=== PATIENT | female | born 1995 | race Caucasian/White ===

== ENCOUNTER → 2019-07-16 11:14 | Outpatient (BNVA) | payer OTHER, MEDICAID, SELFPAY | PROVIDERS: Family Provider Nurse Practitioner Family; PCP Nurse Practitioner Family; Visit Provider Obstetrics & Gynecology | DX: Z30.430 Encounter for insertion of intrauterine contraceptive device (principal); Z30.9 Encounter for contraceptive management, unspecified; Z78.9 Other specified health status; R87.610 Atypical squamous cells of undetermined significance on cytologic smear of cervix (ASC-US) | CPT/HCPCS: 81025 ==

== ENCOUNTER → 2021-01-01 11:45 | Outpatient (BNVA) | payer MEDICAID, SELFPAY | PROVIDERS: Family Provider Nurse Practitioner Family; PCP Nurse Practitioner Family; Visit Provider Nurse Practitioner Family | DX: Z20.822 Contact with and (suspected) exposure to COVID-19 (principal) | CPT/HCPCS: 87635 ==

== ENCOUNTER → 2021-08-15 10:00 | Outpatient (BNVA) | payer MEDICAID, SELFPAY | PROVIDERS: Family Provider Nurse Practitioner Family; PCP Nurse Practitioner Family; Visit Provider Nurse Practitioner Women's Health | DX: N92.6 Irregular menstruation, unspecified (principal) | CPT/HCPCS: 81025; 84702 ==

== ENCOUNTER → 2021-09-14 09:57 | Outpatient (BNVA) | payer MEDICAID, SELFPAY | PROVIDERS: Family Provider Nurse Practitioner Family; PCP Nurse Practitioner Family; Visit Provider Obstetrics & Gynecology | DX: Z34.90 Encounter for supervision of normal pregnancy, unspecified, unspecified trimester (principal) | CPT/HCPCS: 76815; 80307; 84315; 85027; 86592; 86762; 86803; 86850; 86900; 87086; 87340; 87806 ==

== ENCOUNTER → 2021-10-19 13:20 | Outpatient (BNVA) | payer MEDICAID, SELFPAY | PROVIDERS: Family Provider Nurse Practitioner Family; PCP Nurse Practitioner Family; Visit Provider Obstetrics & Gynecology | DX: O09.92 Supervision of high risk pregnancy, unspecified, second trimester (principal); Z3A.00 Weeks of gestation of pregnancy not specified | CPT/HCPCS: 84315; 87491; 87591 ==

== ENCOUNTER 2021-11-19 07:23 | Emergency (ER) | payer MEDICAID, SELFPAY ==
--- NOTE | 2021-11-19 07:27 | XR_ITS ---
WS: [id number] PORTABLE CHEST HISTORY: dyspnea/cough COMPARISON: None available. Very mild interstitial edema. No focal consolidation or pneumonia. No pleural effusion or pneumothora x. Cardiac size: Normal. Mediastinum/Aorta: Normal mediastinum. No osseous abnormality seen. XR/XR chest 1V portable [id number] IMPRESSION: Mild interstitial edema. No pneumonia.
[2021-11-19 07:31] VITALS: BP 140/85; PULSE 119; RESP 24; TEMP 36.6; O2SAT 93; BMI 34.3
[2021-11-19 07:36] VITALS: BP 125/88; PULSE 100; RESP 18; O2SAT 93
[2021-11-19 07:59] LABS: Basophils % 0.3 %; Eosinophils # 0.2 10^3/uL (0.0-0.8); Eosinophils % 1.5 %; Hematocrit 38.9 % (37.0-47.0); Hemoglobin 13.3 g/dL (11.5-15.3); Lymphocytes # 3.1 10^3/uL (0.8-4.8); Lymphocytes % 19.7 %; Mean Corpuscular HGB Conc 34.2 g/dL (30.0-36.0); Mean Corpuscular Hemoglobin 31.1 pg (28.0-34.0); Mean Corpuscular Volume 90.9 fl (81-99); Monocytes # 0.5 10^3/uL (0.2-0.9); Monocytes % 3.3 %; Neutrophils # 11.62 10^3/uL (1.8-7.7); Neutrophils % 74.7 %; Nucleated Red Blood Cells % 0 %; Platelet Count 375 10^3/cmm (130-400); Red Blood Count 4.28 10^6/uL (4.1-5.3); Red Cell Distribution Width 13.8 % (12.1-15.1); White Blood Count 15.6 10^3/uL (4.0-10.0)
--- NOTE | 2021-11-19 07:59 | ED_ITS ---
HPI - SOB/Dyspnea General: Chief Complaint: Shortness of Breath/Dyspnea Stated Complaint: low o2 Time Seen by Provider: 11/19/21 07:25 Source: patient Mode of arrival: ambulatory Limitations: no limitations History of Present Illness: HPI Narrative: 26-year-old female presents emergency room complaining cough and shortness of breath. States her oxygen saturations at home dropped as low as 82%. On arrival here her oxygen saturation normal breath and she is mildly tachycardic. Symptoms started 6 days ago she was seen over the weekend in urgent care and started on amoxicillin given albuterol. Patient is currently 19 weeks and had an abnormal quad screen for trisomy 21. She is also Rh-. She denies any anosmia she has been vaccinated for COVID she not had any fever. No chest pain. MD elicited complaint: shortness of breath and cough Pertinent past history: other (Currently 19 weeks ) Onset (ago): day(s) (6) Timing: intermittent Severity: mild Exacerbating factors: exertion Relieving factors: rest Associated symptoms: Deny abdominal pain, chest congestion, chest pain, cough, diaphoresis, dizziness, extremity pain, fever(s), hemoptysis, lightheadedness, myalgias, nausea, orthopnea, palpitations, paresthesias, polydipsia, polyuria, rash, sense of impending doom, syncope or vomiting Treatment prior to arrival: none Review of Systems Const: Reports: fatigue and malaise; Denies: fever(s), chills or diaphoresis ENMT: Denies: throat pain, ear or mastoid pain, nasal discharge or nasal co ngestion Card: Denies: chest pain, palpitations, lightheadedness, syncope or orthopnea Resp: Reports: dyspnea and non-productive cough; Denies: productive cough, wheezing, hemoptysis or chest congestion GI: Denies: abdominal pain, nausea or vomiting : Denies: flank pain, difficulty voiding, dysuria, urinary frequency or urinary urgency Musc: Denies: extremity pain Skin/Breast: Denies: rash or pruritus Neuro: Denies: dizziness Endo: Denies: polyuria or polydipsia PFSH ED PFSH: Medical History Atypical squamous cells of undetermined significance (ASC-US) on cervical Pap smear No pertinent past medical history neghx: htn,dm,thyroid,dvt/pe PCP: Carrie Benitez Surgical History No pertinent past surgical history Family History Grandmother Breast cancer maternal--dx age unknown Hypercholesteremia paternal Hypertension Paternal Father Diabetes Hypercholesteremia Hypertension Mother Hypercholesteremia Grandfather Hypercholesteremia paternal Denies family history of Colon cancer Ovarian cancer Heart disease Uterine cancer Thyroid disease Stroke Physical Exam Const: GENERAL APPEARANCE: cooperative and comfortable ORIENTATION/CONSCIOUSNESS: Yes awake, Yes oriented to person, Yes oriented to place and Yes oriented to time HENMT: COMMON NORMALS: normocephalic, atraumatic and hearing grossly normal bilaterally HEAD & SCALP: normocephalic and atraumatic Neck/C-Spine: COMMON NORMALS: no JVD Resp: AUSCULTATION: crackles and diminished lung sounds Cardio: COMMON NORMALS: no JVD, regular rate, regular rhythm and No murmurs present (Cardio) RATE: regular rate RHYTHM: regular rhythm GI: COMMON NORMALS: Soft to palpation and No hepatosplenomegaly present AUSCULTATION: Yes normoactive bowel sounds PALPATION: Yes Soft to palpation, No Tenderness to palpation present (GI), No Guarding due to palpation present (GI) and Yes No hepatosplenomegaly present Extremity: COMMON NORMALS: normal to inspection, capillary refill normal, no clubbing, cyanosis or edema, no calf tenderness and no pedal edema Neuro: SENSORIUM/ORIENTATION: Yes oriented to person, Yes oriented to place and Yes oriented to time Skin: COMMON NORMALS: no rashes or lesions noted GENERAL SKIN EXAM: no rashes or lesions noted Course Vital Signs: Vital signs: Vital Signs Temperature 98 F 11/19/21 07:31 Pulse Rate 89 11/19/21 11:05 Respiratory Rate 20 H 11/19/21 11:05 Blood Pressure 145/85 11/19/21 11:05 Pulse Oximetry 91 11/19/21 11:05 MDM - SOB/Dyspnea Medical Decision Making Relatively mild symptoms improved with nebulizer. No pneumonia on chest x-ray patient is improved no longer using oxygen she did use some oxygen for a brief period of time time discharge she was on room air tolerating well. We will discharge patient home if she has any worsening or change symptoms return to the emergency room. Medical Records I reviewed the patient's medical records. Lab Data I reviewed the patient's lab results. : 11/19/21 07:50 11/19/21 07:50 Labs/Radiology: Radiology Impressions Chest X-Ray 11/19/21 07:27 IMPRESSION: Mild interstitial edema. No pneumonia. Laboratory Results WBC 15.6 10^3/uL (4.0-10.0) H 11/19/21 07:50 RBC 4.28 10^6/uL (4.1-5.3) 11/19/21 07:50 Hgb 13.3 g/dL (11.5-15.3) 11/19/21 07:50 Hct 38.9 % (37.0-47.0) 11/19/21 07:50 MCV 90.9 fl (81-99) 11/19/21 07:50 MCH 31.1 pg (28.0-34.0) 11/19/21 07:50 MCHC 34.2 g/dL (30.0-36.0) 11/19/21 07:50 RDW 13.8 % (12.1-15.1) 11/19/21 07:50 Plt Count 375 10^3/cmm (130-400) 11/19/21 07:50 MPV 9.0 fL (7.4-10.4) 11/19/21 07:50 Neut % (Auto) 74.7 % 11/19/21 07:50 Lymph % (Auto) 19.7 % 11/19/21 07:50 [place] % (Auto) 3.3 % 11/19/21 07:50 Eos % (Auto) 1.5 % 11/19/21 07:50 Baso % (Auto) 0.3 % 11/19/21 07:50 Neut # (Auto) 11.62 10^3/uL (1.8-7.7) H 11/19/21 07:50 Lymph # (Auto) 3.1 10^3/uL (0.8-4.8) 11/19/21 07:50 [place] # (Auto) 0.5 10^3/uL (0.2-0.9) 11/19/21 07:50 Eos # (Auto) 0.2 10^3/uL (0.0-0.8) 11/19/21 07:50 Baso # (Auto) 0.0 10^3/uL (0.0-0.1) 11/19/21 07:50 Nucleated RBC % (auto) 0 % 11/19/21 07:50 Nucleated RBCs # 0.0 /100WBC 11/19/21 07:50 Sodium 136 mmol/L (136-145) 11/19/21 07:50 Potassium 3.5 mmol/L (3.5-5.1) 11/19/21 07:50 Chloride 102 mmol/L (98-107) 11/19/21 07:50 Carbon Dioxide 19 mmol/L (22-29) L 11/19/21 07:50 Anion Gap 18.5 (5-19) 11/19/21 07:50 BUN 5 mg/dL (6-20) L 11/19/21 07:50 Creatinine 0.4 mg/dL (0.5-0.9) L 11/19/21 07:50 GFR Calculation 190.1 mL/min (90-130) H 11/19/21 07:50 Glucose 111 mg/dL (65-115) 11/19/21 07:50 Calculated Osmolality 280 mOsm/kg (285-295) L 11/19/21 07:50 Calcium 9.5 mg/dL (8.5-10.5) 11/19/21 07:50 Total Bilirubin 0.3 mg/dL (0.15-1.2) 11/19/21 07:50 AST 9 U/L (0-32) 11/19/21 07:50 ALT 7 U/L (0-33) 11/19/21 07:50 Alkaline Phosphatase 116 IU/L (35-105) H 11/19/21 07:50 NT-Pro-B Natriuret Pep 6 pg/mL (0-125) 11/19/21 08:42 Total Protein 7.8 g/dL (6.6-8.7) 11/19/21 07:50 Albumin 4.0 g/dL (3.5-5.2) 11/19/21 07:50 Globulin 3.8 g/dL (1.3-4.6) 11/19/21 07:50 SARS-CoV-2 RNA (RT-PCR) Not detected (NOT DETECTED) 11/19/21 10:23 Discharge Plan Discharge Patient Disposition: Home Clinical Impression: Dyspnea Condition: Stable Prescriptions: No Action amoxicillin-pot clavulanate 875-125 mg tablet 1 tab PO BID 7 Days Qty: 14 0RF albuterol sulfate [Ventolin HFA] 90 mcg/actuation HFA aerosol inhaler 2 puff inhalation Q6H PRN (Reason: shortness of breath or wheezing) Qty: 8.5 0RF prenat.vits,floresita,bnx-rffy-prwol Tablet 1 tab PO DAILY 0RF Zyrtec 10 mg Tablet 10 mg PO DAILY PRN (Reason: Allergy Symptoms) 0RF ferrous sulfate [iron] 325 mg (65 mg iron) Tablet 325 mg PO DAILY 0RF Discharge Orders: Discharge ED (Routine); Ordered 11/19/21 Ordered By: Sigifredo Dos Santos Referrals: Laquita Benitez APN [Primary Care Provider] - Discharge Diet: Usual diet Discharge Activity: Limit activity as instructed Patient Instructions: COVID-19 (Coronavirus Disease 2019) (ED), Opioid Safety Activity Restrictions/Additional Instructions: You were tested for COVID-19 today. Recommend you maintain self quarantine until the results have returned. If any worsening or change symptoms return to the emergency room. Coding Level of Care Code ED Customer Support Engineer for Jan Cavanaugh Exam Comprehensive
--- NOTE | 2021-11-19 08:29 | USCV_ITS ---
Elsy Costa Age: 26 Gender: F : 1995 Exam Date: 11/19/2021 08:46 Ordering Phys: Sigifredo Dos Santos DO Technologist: Bassam Martinez Exam Location: [facility] [place] Indication: short of breath chest pain BP: 124 / 74 HR: 95 Rhythm: Sinus Technical Quality: Adequate MEASUREMENTS (Male / Female) Normal Values 2D ECHO LV Diastolic Diameter PLAX 4.3 cm 4.2 - 5.9 / 3.9 - 5.3 cm LV Systolic Diameter PLAX 2.7 cm IVS Diastolic Thickness 0.8 cm 0.6 - 1.0 / 0.6 - 0.9 cm IVS Systolic Thickness 1.4 cm LVPW Diastolic Thickness 1.1 cm 0.6 - 1.0 / 0.6 - 0.9 cm LVPW Systolic Thickness 1.3 cm LVOT Diameter 2.0 cm LV Ejection Fraction 2D Teich 66.8 % LV Ejection Fraction MOD 2C 69.0 % LV Ejection Fraction 2C AL 69.9 % LA Diameter 3.6 cm LA Width 4.2 cm Aorta at Sinotubular Diameter 2.3 cm M-MODE RV Diastolic Diameter MM 1.3 cm Aortic Annulus Diameter 2.9 cm LA Ao Ratio MM 1.5 MV E Point Septal Separation 0.8 cm DOPPLER AV Peak Velocity 168.0 cm/s LVOT Peak Velocity 120.0 cm/s AV Area Cont Eq vti 2.1 cm squared AV Area Cont Eq pk 2.3 cm squared MV Area PHT 5.0 cm squared Mitral E to A Ratio 1.9 MV E' Velocity 63.0 cm/s Mitral E to MV E' Ratio 6.8 Mitral E to LV E' Lateral Ratio 7.1 Mitral E to LV E' Septal Ratio 6.5 TR Peak Velocity 110.0 cm/s TR Peak Gradient 4.8 mmHg PV Peak Velocity 141.0 cm/s FINDINGS Left Ventricle Normal left ventricular size. LV systolic function is normal with EF of 55-60%. No regional wall motion abnormalities.Diastolic function is normal Right Ventricle The right ventricle is normal in size and function. Right Atrium The right atrium is normal in size. Left Atrium The left atrium is normal in size. Mitral Valve Structurally normal mitral valve without significant stenosis or prolapse. There is no mitral regurgitation. Aortic Valve Structurally normal aortic valve without significant sclerosis or stenosis. There is no aortic regurgitation. Tricuspid Valve Structurally normal tricuspid valve without significant stenosis or regurgitation. Pulmonary artery systolic pressure is normal. Pulmonic Valve Not well visualized Pericardium Normal pericardium without effusion. Aorta Normal ascending aorta dimension. IVC CONCLUSIONS LV systolic function is normal with EF of 55-60% Diastolic function is normal No significant valvular heart disease No comparison studies are available Tariq Hoover MD (Electronically Signed) Final Date: 19 November 2021 10:09 S
[2021-11-19 08:30] LABS: Alanine Aminotransferase 7 U/L (0-33); Alkaline Phosphatase 116 IU/L (35-105); Anion Gap 18.5 (5-19); Aspartate Amino Transferase 9 U/L (0-32); Blood Urea Nitrogen 5 mg/dL (6-20); Calcium 9.5 mg/dL (8.5-10.5); Carbon Dioxide 19 mmol/L (22-29); Chloride 102 mmol/L (98-107); Globulin 3.8 g/dL (1.3-4.6); Glomerular Filtration Rate 190.1 mL/min (90-130); Glucose 111 mg/dL (65-115); Osmolality Calculated 280 mOsm/kg (285-295); Potassium 3.5 mmol/L (3.5-5.1); Sodium 136 mmol/L (136-145); Total Bilirubin 0.3 mg/dL (0.15-1.2); Total Protein 7.8 g/dL (6.6-8.7)
[2021-11-19 09:21] LABS: NT Pro B Type Natriuretic Pept 6 pg/mL (0-125)
[2021-11-19 10:28] VITALS: BP 122/68; PULSE 98; RESP 20; O2SAT 94
[2021-11-19 10:57] VITALS: O2SAT 92; O2SAT 95
--- NOTE | 2021-11-19 11:04 | PC.NURSE ---
PT O2 NOTED TO BE 88% ON ROOM AIR, PT PLACED ON 2L NC. O2 SATURATION IMPROVED TO 94%
[2021-11-19 11:05] VITALS: BP 145/85; PULSE 89; RESP 20; O2SAT 91
[2021-11-20 15:02] LABS: Quest SARS-CoV-2 RNA NOT DETECTED (NOT DETECTED)
== END 2021-11-19 12:20 | disposition home or self-care (01) ==
PROVIDERS: Emergency Provider Family Medicine; PCP Nurse Practitioner Family
DX: R06.00 Dyspnea, unspecified (principal); Z20.822 Contact with and (suspected) exposure to COVID-19
CPT/HCPCS: 71045; 80053; 83880; 85025; 87635; 93306; 94760; 99284

== ENCOUNTER → 2021-12-21 09:09 | Outpatient (BNVA) | payer MEDICAID, SELFPAY | PROVIDERS: PCP Nurse Practitioner Family; Visit Provider Obstetrics & Gynecology | DX: Z34.90 Encounter for supervision of normal pregnancy, unspecified, unspecified trimester (principal) | CPT/HCPCS: 82950; 84315 ==

== ENCOUNTER → 2021-12-28 08:19 | Outpatient (BNVA) | payer MEDICAID, SELFPAY | PROVIDERS: PCP Nurse Practitioner Family; Visit Provider Obstetrics & Gynecology | DX: Z34.90 Encounter for supervision of normal pregnancy, unspecified, unspecified trimester (principal) | CPT/HCPCS: 82951; 82952 ==

== ENCOUNTER → 2022-01-18 10:28 | Outpatient (BNVA) | payer MEDICAID, SELFPAY | PROVIDERS: PCP Nurse Practitioner Family; Visit Provider Obstetrics & Gynecology | DX: O26.899 Other specified pregnancy related conditions, unspecified trimester (principal); Z67.91 Unspecified blood type, Rh negative; Z3A.00 Weeks of gestation of pregnancy not specified | CPT/HCPCS: 84315; 85027; 86850 ==

== ENCOUNTER 2022-02-05 06:52 | Outpatient (CLI) | payer MEDICAID, SELFPAY ==
[2022-02-05 06:52] VITALS: BMI 33.7
[2022-02-05 06:56] VITALS: BP 133/80; PULSE 103
[2022-02-05 07:17] VITALS: BP 122/73; PULSE 102
[2022-02-05 07:37] VITALS: BP 119/72; PULSE 100
[2022-02-05 07:48] VITALS: BP 119/72; PULSE 100
== END 2022-02-05 07:48 | disposition home or self-care (01) ==
LOC: OPOB 06:52 → OBGYN 06:53
PROVIDERS: PCP Nurse Practitioner Family; Visit Provider Obstetrics & Gynecology
DX: O36.8190 Decreased fetal movements, unspecified trimester, not applicable or unspecified (principal); Z3A.00 Weeks of gestation of pregnancy not specified
CPT/HCPCS: 59025; 99211

== ENCOUNTER → 2022-02-22 14:21 | Outpatient (BNVA) | payer MEDICAID, SELFPAY | PROVIDERS: PCP Nurse Practitioner Family; Visit Provider Obstetrics & Gynecology | DX: O09.899 Supervision of other high risk pregnancies, unspecified trimester (principal); Z3A.00 Weeks of gestation of pregnancy not specified | CPT/HCPCS: 76819 ==

== ENCOUNTER → 2022-02-27 07:40 | Outpatient (BNVA) | payer MEDICAID, SELFPAY | PROVIDERS: PCP Nurse Practitioner Family; Visit Provider Obstetrics & Gynecology | DX: O28.0 Abnormal hematological finding on antenatal screening of mother (principal); O26.899 Other specified pregnancy related conditions, unspecified trimester; Z3A.00 Weeks of gestation of pregnancy not specified | CPT/HCPCS: 76819 ==

== ENCOUNTER 2022-03-01 01:59 | Observation (INO) | payer MEDICAID, SELFPAY ==
[2022-02-28 22:55] VITALS: BMI 32.4
[2022-02-28 23:08] VITALS: BP 112/62; PULSE 114
[2022-02-28 23:13] VITALS: TEMP 36.1
[2022-02-28 23:23] VITALS: BP 118/65; PULSE 102
[2022-02-28 23:39] VITALS: BP 113/69; PULSE 96
[2022-02-28 23:42] VITALS: RESP 18
[2022-03-01] VITALS (18 sets, daily range): BP systolic 110–135; BP diastolic 53–77; PULSE 96–116; TEMP 36.5
[2022-03-01] MEDS: lactated ringers 1,000 ML 999 ML IV ×2 (00:05→01:30)
[2022-03-01] MEDS: pantoprazole 40 mg SDV IVP (00:12)
[2022-03-01 00:36] LABS: Basophils # 0.1 10^3/uL (0.0-0.1); Basophils % 0.2 %; Eosinophils % 0.1 %; Hematocrit 32.4 % (37.0-47.0); Hemoglobin 10.9 g/dL (11.5-15.3); Lymphocytes # 2.9 10^3/uL (0.8-4.8); Lymphocytes % 10.3 %; Mean Corpuscular HGB Conc 33.6 g/dL (30.0-36.0); Mean Corpuscular Hemoglobin 30.8 pg (28.0-34.0); Mean Corpuscular Volume 91.5 fl (81-99); Mean Platelet Volume 9.9 fL (7.4-10.4); Monocytes % 3.3 %; Neutrophils # 24.12 10^3/uL (1.8-7.7); Neutrophils % 84.8 %; Nucleated Red Blood Cells % 0 %; Platelet Count 471 10^3/cmm (130-400); Red Blood Count 3.54 10^6/uL (4.1-5.3); Red Cell Distribution Width 13.5 % (12.1-15.1); White Blood Count 28.5 10^3/uL (4.0-10.0)
[2022-03-01 00:46] LABS: Alanine Aminotransferase < 5 U/L (0-33); Albumin Level 3.4 g/dL (3.5-5.2); Alkaline Phosphatase 172 U/L (35-105); Anion Gap 17.9 (5-19); Aspartate Amino Transferase 8 U/L (0-32); Blood Urea Nitrogen 7 mg/dL (6-20); Calcium 9.2 mg/dL (8.5-10.5); Carbon Dioxide 20 mmol/L (22-29); Chloride 102 mmol/L (98-107); Globulin 3.6 g/dL (1.3-4.6); Glomerular Filtration Rate 190.1 mL/min (90-130); Glucose 94 mg/dL (65-115); Osmolality Calculated 280 mOsm/kg (285-295); Potassium 3.9 mmol/L (3.5-5.1); Sodium 136 mmol/L (136-145); Total Bilirubin 0.3 mg/dL (0.15-1.2)
[2022-03-01 00:49] LABS: Bilirubin Urine 1+ (Negative); Blood Urine Neg (Negative); Glucose Urine UA Norm (Normal); Ketones Urine 2+ (Negative); Nitrate Urine Negative (Negative); Protein Urine 1+ (Negative); Urine Appearance Clear (CLEAR); Urine Color Dark Yellow (Yellow); Urobilinogen Urine 1 mg/dL (Negative); pH Urine 6 (5-7)
[2022-03-01 00:50] LABS: Leukocyte Esterase Urine Trace (Negative)
[2022-03-01 00:51] LABS: Amorphous Sediment Urine 1+ /hpf; Bacteria Urine 1+ /hpf; Mucus Urine 2+ /hpf; RBC Urine 0-4 /hpf (0-2); Squamous Epithelial Cell Urine 25-40 /hpf (0-5)
[2022-03-01 00:52] LABS: Add Urine Culture? No
[2022-03-01] MEDS: ketorolac 30 mg/mL INJ IVP (01:28)
[2022-03-01] MEDS: lactated ringers 1,000 ML 125 ML IV (02:32)
[2022-03-01] MEDS: ceFAZolin 2,000 MG in sodium chloride 0.9% (plus) 50 ML 100 MG IV (02:33)
[2022-03-01 07:21] LABS: Basophils % 0.2 %; Eosinophils % 0.2 %; Hematocrit 28.1 % (37.0-47.0); Hemoglobin 9.5 g/dL (11.5-15.3); Lymphocytes % 17.4 %; Mean Corpuscular HGB Conc 33.8 g/dL (30.0-36.0); Mean Corpuscular Hemoglobin 30.8 pg (28.0-34.0); Mean Corpuscular Volume 91.2 fl (81-99); Mean Platelet Volume 9.7 fL (7.4-10.4); Monocytes # 0.6 10^3/uL (0.2-0.9); Monocytes % 3.4 %; Neutrophils # 13.47 10^3/uL (1.8-7.7); Neutrophils % 77.9 %; Nucleated Red Blood Cells % 0 %; Platelet Count 383 10^3/cmm (130-400); Red Blood Count 3.08 10^6/uL (4.1-5.3); Red Cell Distribution Width 13.7 % (12.1-15.1); White Blood Count 17.3 10^3/uL (4.0-10.0)
[2022-03-01 07:44] LABS: Alanine Aminotransferase < 5 U/L (0-33); Albumin Level 2.7 g/dL (3.5-5.2); Alkaline Phosphatase 143 U/L (35-105); Anion Gap 16.5 (5-19); Aspartate Amino Transferase 8 U/L (0-32); Blood Urea Nitrogen 7 mg/dL (6-20); Calcium 8.4 mg/dL (8.5-10.5); Carbon Dioxide 19 mmol/L (22-29); Chloride 102 mmol/L (98-107); Globulin 3.1 g/dL (1.3-4.6); Glomerular Filtration Rate 264.9 mL/min (90-130); Glucose 83 mg/dL (65-115); Osmolality Calculated 275 mOsm/kg (285-295); Potassium 3.5 mmol/L (3.5-5.1); Sodium 134 mmol/L (136-145); Total Bilirubin 0.4 mg/dL (0.15-1.2); Total Protein 5.8 g/dL (6.6-8.7)
[2022-03-01] MEDS: alum-mag-hydroxide-sime 30 mL UDC PO (08:02)
--- NOTE | 2022-03-01 10:07 | PM.OBGYPN ---
DIRECTOR DISTRIBUTION Subjective Subjective: Interval history: This is a combined admit note/discharge summary pt presented with c/o nausea, vomiting and diarrhea since eating several hours ago. 34 weeks gestation. She reports she is unable to hold down food and fluids. She was given iv hydration and ancef 2 gms iv. Initially wbc elevated and repeat the following am shows that it is normalizing. Pt showed symptom resolution and was sushant reg diet the following morning and was discharged to home with instructions to f/u in clinic as scheduled. Medications: Reviewed: Yes Labor: Station: -3 Amniotic Membrane Status: Intact Monitor Mode: External Contraction Pattern: Absent Vitals/I&O/Wt Last Vital Signs Temp 97.7 F 03/01/22 09:13 Pulse 113 H 03/01/22 09:13 Resp 18 02/28/22 23:42 BP 131/67 03/01/22 09:13 02/28/22 03/01/22 03/01/22 22:59 06:59 14:59 Intake Total 1000 / 1000 1050 / 1050 Balance 1000 / 1000 1050 / 1050 Weight last 48 hrs Weight 195 lb Physical Exam Narrative: alert and well nourished Const: COMMON NORMALS: no acute distress, average body habitus and patient oriented x3 HENMT: COMMON NORMALS: normocephalic, atraumatic, hearing grossly normal bilaterally, external ears normal and Normal external nose present HEAD & SCALP: normocephalic and atraumatic NOSE: Normal external nose present EXTERNAL EAR: Yes external ears normal Eye: COMMON NORMALS: conjunctivae normal and no scleral icterus CONJUNCTIVA: Yes conjunctivae normal Neck/C-Spine: COMMON NORMALS: no lymphadenopathy, supple, no JVD and Thyroid normal THYROID: Thyroid normal Chest: COMMONS NORMALS: normal inspection of the chest Resp: COMMON NORMALS: normal respiratory effort, No retractions and No use of accessory muscles Cardio: COMMON NORMALS: no JVD, regular rate and Peripheral pulses 2+ throughout RATE: regular rate PERIPHERAL PULSES: Peripheral pulses 2+ throughout GI: COMMON NORMALS: Soft to palpation PALPATION: Yes Soft to palpation OTHER: diffusely tender : COMMON NORMALS: Yes no CVA tenderness BLADDER/KIDNEY EXAM: Yes no CVA tenderness Back/Pelvis: COMMON NORMALS: no CVA tenderness Extremity: COMMON NORMALS: normal to inspection, capillary refill normal and no clubbing, cyanosis or edema Neuro: COMMON NORMALS: patient oriented x3, moves all extremities, no focal motor deficits, no sensory deficits noted and gait normal Psych: COMMON NORMALS: mental status grossly normal, Normal thought process present, cooperative, normal affect and speech normal SPEECH: Yes normal speech THOUGHT PROCESS: Normal thought process present Skin: COMMON NORMALS: no rashes or lesions noted and turgor normal GENERAL SKIN EXAM: no rashes or lesions noted and turgor normal Data : 03/01/22 07:11 03/01/22 07:11 A&P Assessment and plan (1) Gastroenteritis: iv hydration and antiemetics ancef 2 gms (2) Rh negative status during : (3) Abnormal multiple marker screen in fetus: (4) Atypical squamous cells of undetermined significance (ASC-US) on cervical Pap smear: (5) Supervision of normal in third trimester: Plan iv hydration ancef 2 gms repeat cbc discharged to home with improved cbc and symptom resolution Attestations Medical Necessity Statement*: observation for iv hydration and repeat cbc for gastroenteritis Time Spent in Patient Care: 30 min Coding Level of Care Code Acute Administrative Services Coordinator for [facility] Fwd Diagnoses Gastroenteritis K52.9 Rh negative status during O26.899; Z67.91 Abnormal multiple marker screen in fetus O28.0 Atypical squamous cells of undetermined significance (ASC-US) on cervical Pap smear R87.610 Supervision of normal in third trimester Z34.93
== END 2022-03-01 10:25 | disposition home or self-care (01) ==
LOC: OPOB 02:00 → OBGYN 02:00
PROVIDERS: Admitting Provider Obstetrics & Gynecology; PCP Nurse Practitioner Family; Visit Provider Obstetrics & Gynecology
DX: O26.893 Other specified pregnancy related conditions, third trimester (principal); Z3A.36 36 weeks gestation of pregnancy; K52.9 Noninfective gastroenteritis and colitis, unspecified; Z67.91 Unspecified blood type, Rh negative; O28.0 Abnormal hematological finding on antenatal screening of mother; R87.610 Atypical squamous cells of undetermined significance on cytologic smear of cervix (ASC-US)
CPT/HCPCS: 36415; 59025; 80053; 81001; 85025; 96374; 99211; C9113; G0378; J1885; J7120

== ENCOUNTER → 2022-03-12 13:11 | Outpatient (BNVA) | payer MEDICAID, SELFPAY | PROVIDERS: Family Provider Nurse Practitioner Family; PCP Nurse Practitioner Family; Visit Provider Obstetrics & Gynecology | DX: R89.8 Other abnormal findings in specimens from other organs, systems and tissues (principal) | CPT/HCPCS: 76819 ==

== ENCOUNTER → 2022-03-15 14:11 | Outpatient (BNVA) | payer MEDICAID, SELFPAY | PROVIDERS: Family Provider Nurse Practitioner Family; PCP Nurse Practitioner Family; Visit Provider Obstetrics & Gynecology | DX: O26.899 Other specified pregnancy related conditions, unspecified trimester (principal); Z67.91 Unspecified blood type, Rh negative; O28.0 Abnormal hematological finding on antenatal screening of mother; K52.9 Noninfective gastroenteritis and colitis, unspecified; O99.019 Anemia complicating pregnancy, unspecified trimester; Z3A.00 Weeks of gestation of pregnancy not specified | CPT/HCPCS: 81000; 87081 ==

== ENCOUNTER → 2022-03-22 12:51 | Outpatient (BNVA) | payer MEDICAID, SELFPAY | PROVIDERS: Family Provider Nurse Practitioner Family; PCP Nurse Practitioner Family; Visit Provider Obstetrics & Gynecology | DX: O99.019 Anemia complicating pregnancy, unspecified trimester (principal); D64.9 Anemia, unspecified; Z3A.00 Weeks of gestation of pregnancy not specified | CPT/HCPCS: 76819; 84315 ==

== ENCOUNTER → 2022-03-29 07:42 | Outpatient (BNVA) | payer MEDICAID, SELFPAY | PROVIDERS: Family Provider Nurse Practitioner Family; PCP Nurse Practitioner Family; Visit Provider Obstetrics & Gynecology | DX: Z34.90 Encounter for supervision of normal pregnancy, unspecified, unspecified trimester (principal) | CPT/HCPCS: 76819; 84315 ==

== ENCOUNTER → 2022-04-02 13:12 | Outpatient (BNVA) | payer MEDICAID, SELFPAY | PROVIDERS: Family Provider Nurse Practitioner Family; PCP Nurse Practitioner Family; Visit Provider Obstetrics & Gynecology | DX: O99.019 Anemia complicating pregnancy, unspecified trimester (principal); D64.9 Anemia, unspecified | CPT/HCPCS: 76819; 84315 ==

== ENCOUNTER 2022-04-07 19:14 | Inpatient (IN) | payer MEDICAID, SELFPAY ==
[2022-04-07] VITALS (64 sets, daily range): BP systolic 118–206; BP diastolic 62–95; PULSE 83–116; RESP 17–18; TEMP 36.1–36.7; O2SAT 97–99; BMI 31.2
[2022-04-07 17:03] LABS: Nitrazine Paper, PH Negative
[2022-04-07] MEDS: ampicillin 2,000 MG in sodium chloride 0.9% (plus) 50 ML 100 MG IV (18:02)
[2022-04-07] MEDS: lactated ringers 1,000 ML 999 ML IV ×2 (18:03→19:09)
[2022-04-07] MEDS: fentaNYL 50 mcg/mL INJ 2mL IVP (18:12)
[2022-04-07 18:17] LABS: Basophils # 0.1 10^3/uL (0.0-0.1); Basophils % 0.3 %; Eosinophils # 0.1 10^3/uL (0.0-0.8); Eosinophils % 0.6 %; Hematocrit 33.5 % (37.0-47.0); Hemoglobin 11.3 g/dL (11.5-15.3); Lymphocytes # 5.1 10^3/uL (0.8-4.8); Lymphocytes % 26.3 %; Mean Corpuscular HGB Conc 33.7 g/dL (30.0-36.0); Mean Corpuscular Volume 86.1 fl (81-99); Mean Platelet Volume 9.5 fL (7.4-10.4); Monocytes # 0.8 10^3/uL (0.2-0.9); Monocytes % 3.9 %; Nucleated Red Blood Cells % 0 %; Platelet Count 488 10^3/cmm (130-400); Red Blood Count 3.89 10^6/uL (4.1-5.3); Red Cell Distribution Width 14.2 % (12.1-15.1); White Blood Count 19.6 10^3/uL (4.0-10.0)
--- NOTE | 2022-04-07 18:41 | P.ANESASSM_ITS ---
Pre-Anesthetic Assessment Height/Weight: Height 1.65 m Weight 85.275 kg Temp Pulse Resp BP Pulse Ox O2 Del Method 97.0 F L 100 17 131/78 98 04/07/22 17:46 04/07/22 18:38 04/07/22 18:12 04/07/22 18:38 04/07/22 18:37 04/07/22 17:45 Familial anesthetic complications: none Was Beta Domi taken within 24 hours: N/A Was Clonidine taken within 24 hours: N/A Social No alcohol and No tobacco Exam alert, oriented x 3, clear to auscultation bilaterally and regular rate & rhythm Airway Submandibular: within normal limits Cervical ROM: within normal limits Mallampati: Class II Dentition: full CV/HEM Anemia Anesthetic Plan ASA status: 2 Anesthesia: Regional (specify below) (labor epidural) Medications/Allergies Home Medications Medication Instructions Recorded Confirmed Last Taken Type prenat.vits,floresita,yyv-ifqf-ezyzf 1 tab PO DAILY 08/15/21 04/07/22 04/06/22 12:45 History ferrous sulfate 325 mg (65 mg 325 mg PO BID #60 tabs 02/01/22 04/07/22 04/06/22 12:45 Rx iron) tablet (iron) docusate sodium 100 mg capsule 100 mg PO BID #60 caps 03/07/22 04/07/22 04/06/22 12:45 Rx (Colace) Allergies Allergy/AdvReac Type Severity Reaction Status Date / Time acetaminophen [From Tylenol] Allergy Mild rash Verified 04/02/22 15:14 Current Medications Generic Name Dose Route Start Last Admin Trade Name Danielq PRN Reason Stop Dose Admin Fentanyl 25 - 100 mcg 04/07/22 17:46 04/07/22 18:12 Fentanyl 50 Mcg/Ml Inj 2ml IVP 25 mcg Q1H PRN Administration SEVERE PAIN Ropivacaine 200 mg in 100 mls @ 13 mls/hr 04/07/22 18:00 04/07/22 18:28 Naropin Premix EPIDURAL 13 mls/hr .Q7H42M CLEM Administration Lactated Ringer's 1,000 mls @ 999 mls/hr 04/07/22 17:57 04/07/22 18:03 Lactated Ringers IV 999 mls/hr .Q1H1M PRN Administration See label comments [facility] Anesthesia Medical History Atypical squamous cells of undetermined significance (ASC-US) on cervical Pap smear No pertinent past medical history neghx: htn,dm,thyroid,dvt/pe PCP: Carrie Benitez Surgical History No pertinent past surgical history Family History Grandmother Breast cancer maternal--dx age unknown Hypercholesteremia paternal Hypertension Paternal Father Diabetes Hypercholesteremia Hypertension Mother Hypercholesteremia Grandfather Hypercholesteremia paternal Denies family history of Colon cancer Ovarian cancer Heart disease Uterine cancer Thyroid disease Stroke Social History Smoking and tobacco status: former smoker Female Reproductive History : 3 Data Anesthesia 04/07/22 17:54 Cardiac Studies: Echocardiogram 11/19/21 Anesthesia Procedures Epidural Time Out Performed: Yes Consents Signed: Procedure Consent Consent: requested by attending/covering physician, from patient, risks and benefits reviewed and patient agrees to proceed Lumbar Level: L3-L4 Epidural position: sitting Epidural procedure: sterile prep of area, 1% lidocaine to numb the area, 18 g needle, neg for paresthesia, test dose given, placed PCEA, no systemic response, sterile dressing applied and 0.2% Ropiavacaine @ mls/hr (13) Additional Comments: ENRIQUE at 6cm, cath at 11cm, no bolus
[2022-04-07 18:43] LABS: Slide Review Slide Review Perform
--- NOTE | 2022-04-07 18:53 | PM.OBGYHP ---
Providers/Chief Complaint Primary Care Provider: Laquita Benitez APN Chief Complaint: CONTRACTIONS HPI SUPERVISOR FINISH END History of Present Illness Elsy Costa is a 26 year old female at 39.2 wk IUP admitted in early labor. Initial exam Cervix 4cm/70%/-2 vtx now 6cm/90%/-2. care uncomplicated to date with Ciro Daniels. Present Details : 3 Para: 1 Date of Last Menstrual Period: 07/06/21 Calculated Date of Delivery: 04/12/22 Gestational Age Based on Last Menstrual Period: 39 care: good care Ultrasounds: normal mid trimester US Obstetrical complications: other (Abnormal Quad screen with Normal MFM and Level 2 US.) Labs Rubella: Immune RPR: Negative GBS: Positive Review of Systems Const: Denies: fever(s) Card: Denies: swelling of feet/ankles GI: Denies: abdominal pain, nausea, vomiting or constipation : Denies: dysuria, vaginal bleeding, vaginal discharge or other (leaking fluid ) Musc: Denies: back pain Neuro: Denies: headache(s) Medications/Allergies Home Medications Medication Instructions Recorded Confirmed Last Taken Type prenat.vits,floresita,tas-hfhl-pnkzm 1 tab PO DAILY 08/15/21 04/07/22 04/06/22 12:45 History ferrous sulfate 325 mg (65 mg 325 mg PO BID #60 tabs 02/01/22 04/07/22 04/06/22 12:45 Rx iron) tablet (iron) docusate sodium 100 mg capsule 100 mg PO BID #60 caps 03/07/22 04/07/22 04/06/22 12:45 Rx (Colace) Allergies Allergy/AdvReac Type Severity Reaction Status Date / Time acetaminophen [From Tylenol] Allergy Mild rash Verified 04/02/22 15:14 PFSH SUPERVISOR FINISH END PFSH: Medical History Atypical squamous cells of undetermined significance (ASC-US) on cervical Pap smear No pertinent past medical history neghx: htn,dm,thyroid,dvt/pe PCP: Carrie Benitez Surgical History No pertinent past surgical history Family History Grandmother Breast cancer maternal--dx age unknown Hypercholesteremia paternal Hypertension Paternal Father Diabetes Hypercholesteremia Hypertension Mother Hypercholesteremia Grandfather Hypercholesteremia paternal Denies family history of Colon cancer Ovarian cancer Heart disease Uterine cancer Thyroid disease Stroke Social History Smoking and tobacco status: former smoker Other Female Reproductive History: Hx Age of Menarche: 8 Date of Last Menstrual Period: 07/06/21 History History History 3 Term 1 0 Miscarriages/Ectopic 1 Living Children 1 Care FLAVIO Calculator Estimated Delivery Date Method Current WG Current Estimate 04/12/22 LMP (Certain) 39w 2d Specific Issues/Plans RH Negative; A NEGATIVE POSITIVE HR FOR TRISOMY 21 on panorama; followed by MFM; normal biometry. Wkly NST/BPP at 32 weeks until delivery Anemia; started on twice daily iron at 28 weeks Vitals/I&O/Wt Last Vital Signs Temp 97.0 F L 04/07/22 17:46 Pulse 103 H 04/07/22 18:50 Resp 17 04/07/22 18:12 BP 132/80 04/07/22 18:50 Pulse Ox 97 04/07/22 18:42 O2 Del Method 04/07/22 17:45 04/07/22 04/07/22 04/07/22 06:59 14:59 22:59 Intake Total 50 / 50 Balance 50 / 50 Weight last 48 hrs Weight 85.275 kg Physical Exam Narrative: 26yo C. female awake and alert in no distress HENMT: COMMON NORMALS: normocephalic, moist oral mucous membranes and oropharynx normal HEAD & SCALP: normal to inspection EXTERNAL EAR: Yes external ears normal MOUTH: Normal oral and palatal mucosa present Resp: COMMON NORMALS: normal respiratory effort and clear to auscultation bilaterally Cardio: COMMON NORMALS: no JVD, regular rate and regular rhythm : COMMON NORMALS: Yes no CVA tenderness, Yes normal appearance of the vagina and Yes normal appearance of the cervix MANUAL OB EXAM: dilated 6 cm and effaced (90%) OTHER: AROM- clear fluid noted. Extremity: COMMON NORMALS: normal to inspection and no pedal edema Neuro: CRANIAL NERVES: Yes CN normal except as noted Data 11/27/22 17:54 A&P Assessment and plan (1) 39 weeks gestation of : (2) Anemia during : (3) Supervision of normal in third trimester: (4) Rh negative status during : (5) Abnormal multiple marker screen in fetus: Attestations Medical Necessity Statement*: Admitted for Management of Labor. Coding Level of Care Code Acute General Claims Agent for [facility] Fwd Diagnoses 39 weeks gestation of Z3A.39 Anemia during O99.019 Supervision of normal in third trimester Z34.93 Rh negative status during O26.899; Z67.91 Abnormal multiple marker screen in fetus O28.0
[2022-04-07] MEDS: dextrose 5%-lactated ringers 1,000 ML 125 ML IV (20:13)
[2022-04-07] MEDS: alum-mag-hydroxide-sime 30 mL UDC PO (20:51)
[2022-04-07] MEDS: oxytocin 30 UNIT/500 ML BAG IV (21:40)
[2022-04-07] MEDS: ampicillin 1,000 MG in sodium chloride 0.9% (plus) 50 ML 100 MG IV (22:02)
--- NOTE | 2022-04-07 23:08 | PM.DELIVERY ---
Delivery Note: Date of delivery: April 07, 2022 History History History 3 Term 1 0 Miscarriages/Ectopic 1 Living Children 1 Coding Level of Care Code Acute Pensions Retirement Plan Specialist for [facility]
--- NOTE | 2022-04-07 23:11 | P.PN_ITS ---
REGIONAL SALES REPRESENTATIVE Subjective Subjective: Interval history: Pt comfortable with Epidural. Now complete. Will DC epidural and labor down for adequate pushing. Labor: Station: -2 Amniotic Membrane Status: Intact Monitor Mode: External Contraction Pattern: Regular Status: Category I Vitals/I&O/Wt Last Vital Signs Temp 97.2 F L 04/07/22 22:45 Pulse 98 04/07/22 22:59 Resp 17 04/07/22 18:12 BP 143/88 04/07/22 22:59 Pulse Ox 97 04/07/22 18:42 O2 Del Method 04/07/22 17:45 04/07/22 04/07/22 04/08/22 14:59 22:59 06:59 Intake Total 2051.800 / 2051.800 Balance 2051.800 / 2051.800 Weight last 48 hrs Weight 85.275 kg Physical Exam Urinary Catheter Management: Levy Latex: Cath Placed During This Visit: yes Reason for Continuing Indwelling Catheter: Acute Urinary Retention or Obstruction Urinary Catheter Date of Insertion: 04/07/22 Urinary Catheter Time of Insertion: 19:00 Data 04/07/22 17:54 A&P Assessment and plan (1) 39 weeks gestation of : (2) Anemia during : (3) Supervision of normal in third trimester: (4) Rh negative status during : (5) Abnormal multiple marker screen in fetus: Plan P. Labor down, start pushing soon. Attestations Medical Necessity Statement*: management of labor Coding Level of Care Code Acute Document Preparer Microfilming for [facility] Fwd Diagnoses 39 weeks gestation of Z3A.39 Anemia during O99.019 Supervision of normal in third trimester Z34.93 Rh negative status during O26.899; Z67.91 Abnormal multiple marker screen in fetus O28.0
[2022-04-08] VITALS (16 sets, daily range): BP systolic 122–148; BP diastolic 70–93; PULSE 67–95; RESP 15–18; TEMP 35.9–37.1; O2SAT 96–100
--- NOTE | 2022-04-08 00:21 | PM.DELIVERY ---
Delivery Note: Date of delivery: April 08, 2022 Pre-delivery diagnoses: 39.2 wk IUP GBS positive Hx of Abnormal Quad screen Post-delivery diagnoses: S/P male Procedure: Op report anesthesia: Epidural Delivering Physician: Kwaku DANIELLE Estimated blood loss (mL): 300 Delivery: presented in OA presentation, followed by delivery of the Anterior then posterior shoulder with remainder of body to follow. Spontaneous cry noted. The cord was noted to be coiled and short. After delayed clamping the cord was clamped and cut and baby placed on Mothers chest. Cord blood collected and handed off. The uterus messaged and placenta presented Amin with trailing membranes. Pitocin IV solution given in bolus, the uterus firmed well with minimal bleeding. Vaginal vault explored with small laceration requiring 1 SIS of 2.0 vicryl to approximate. Mother and Infant stable. 8/8 wt- pending. Nursing staff attending to baby boy at warmer now requiring O2. Will take to Nursery for Lock Corner Machine Operator assistance. Post-Delivery Status: stable History History History 3 Term 1 0 Miscarriages/Ectopic 1 Living Children 1 A&P Assessment and plan (1) (spontaneous vaginal delivery): (2) Anemia during : (3) Rh negative status during : (4) Abnormal multiple marker screen in fetus: Plan A. 39.2 wk IUP delivered by - Viable male GBS positive Abnormal marker for Downs Anemia during Rh neg sttus P. Routine care and orders Coding Level of Care Code Acute Residential Program Coordinator for g Fwd Diagnoses (spontaneous vaginal delivery) O80 Anemia during O99.019 Rh negative status during O26.899; Z67.91 Abnormal multiple marker screen in fetus O28.0
[2022-04-08] MEDS: alum-mag-hydroxide-sime 30 mL UDC PO (00:46)
[2022-04-08] MEDS: oxytocin 30 UNIT/500 ML BAG 150 UNIT IV (00:48)
--- NOTE | 2022-04-08 01:35 | PC.NURSE ---
Patient wanted to get up to the bathroom at this time she was able to move her legs up and hold them in bed. She reported having good feeling in her legs. She got up on the side of the bed and sat for a couple minutes and was feeling fine. She then stood up and reported that her legs felt a little funny. The nurse was on one side of her holding her arm and her had her other arm. We helped walk her to the bathroom because she stated she felt fine just wanted some assistance. She was helped to the bathroom and sat on the toilet. She was given washcloths and clean up with and pads and underwear to put on. She was able to do this with limited assistance from the nurse. She attempted to pee for several minutes and was unable to go at this time. She was then helped into the wheelchair to go feed baby in the nursery and she said she no longer feels like she needs to pee. Her fundus is at umbilicus left of midline at this time but firm her bleeding is still scant. I told her I would help her back to the bathroom when she gets done feeding baby. She verbalized understanding and had no further questions at this time.
[2022-04-08] MEDS: ibuprofen 600 mg Tablet PO (03:02)
[2022-04-08] MEDS: oxyCODONE 5 mg IR Tab/Cap 10 MG PO (03:28)
[2022-04-08] MEDS: ibuprofen 800 mg tablet PO ×3 (08:04→20:47)
[2022-04-08] MEDS: docusate sodium 100 mg Capsule PO ×2 (08:04→20:47)
[2022-04-08] MEDS: prenatal vitamin Capsule 1 CAP PO (08:04)
[2022-04-08 12:30] LABS: Hematocrit 32.4 % (37.0-47.0); Hemoglobin 10.7 g/dL (11.5-15.3); Mean Corpuscular Hemoglobin 29.2 pg (28.0-34.0); Mean Corpuscular Volume 88.5 fl (81-99); Mean Platelet Volume 9.8 fL (7.4-10.4); Platelet Count 459 10^3/cmm (130-400); Red Blood Count 3.66 10^6/uL (4.1-5.3); Red Cell Distribution Width 14.3 % (12.1-15.1); White Blood Count 20.9 10^3/uL (4.0-10.0)
--- NOTE | 2022-04-08 20:18 | PM.OBGYPN ---
FAMILY WELFARE SOCIAL WORK PROFESSOR Subjective Subjective: Interval history: Pt resting in bed FOB present, no complaints. Tolerating ambulation, and diet without problems. Denies ARCHIBALD or dizziness. Baby doing well, feeding well, no longer requiring O2. Labor: Station: -2 Amniotic Membrane Status: Intact Monitor Mode: External Contraction Pattern: Regular Status: Category I Post /CS: Patient comments OB post-: no complaints, pain well controlled and tolerating diet Vitals/I&O/Wt Last Vital Signs Temp 98.3 F 04/08/22 16:50 Pulse 87 04/08/22 16:50 Resp 16 04/08/22 16:50 BP 136/81 04/08/22 16:50 Pulse Ox 97 04/08/22 16:50 O2 Del Method 04/08/22 16:50 04/08/22 04/08/22 04/08/22 06:59 14:59 22:59 Intake Total 2096.800 / 4199.600 Output Total 800 / 800 Balance 1296.800 / 3399.600 Weight last 48 hrs Weight 85.275 kg Physical Exam GI: COMMON NORMALS: Normal to inspection, nondistended, normoactive bowel sounds present and Soft to palpation PALPATION: Yes Soft to palpation OTHER: Fundus firm, lochia light. Extremity: NARRATIVE EXTREMITY EXAM: no edema, neg homans Urinary Catheter Management: Leyv Latex: Cath Placed During This Visit: yes, but has since been removed by the nurse Reason for Continuing Indwelling Catheter: Required Immobilization for Trauma or Surgery or Anesthesia Urinary Catheter Date of Insertion: 04/07/22 Urinary Catheter Time of Insertion: 19:00 Date Urinary Catheter Removed: 04/07/22 Time Urinary Catheter Discontinued: 23:30 Data 04/08/22 12:00 A&P Assessment and plan (1) (spontaneous vaginal delivery): (2) Anemia during : (3) Rh negative status during : (4) Abnormal multiple marker screen in fetus: Plan P. Probable Discharge tomorrow. Attestations Medical Necessity Statement*: S/P - Coding Level of Care Code Acute Mental Health Worker for Chg Fwd Exam Problem Focused Diagnoses (spontaneous vaginal delivery) O80 Anemia during O99.019 Rh negative status during O26.899; Z67.91 Abnormal multiple marker screen in fetus O28.0
[2022-04-09 04:25] VITALS: BP 112/86; PULSE 84; RESP 18; TEMP 36.7; O2SAT 98
--- NOTE | 2022-04-09 08:24 | P.DS_ITS ---
Discharge Providers SALES OUTFITTER Date of Admission: 04/07/22 19:14 Date of Discharge: 04/09/22 Attending Provider at Admission: Yvette Phipps DO Attending Provider at Discharge: Yvette Phipps DO Primary SALES OUTFITTER: Dr. Tanner Primary Care Provider: Laquita Benitez APN Diagnoses at Discharge Discharge Diagnosis (1) (spontaneous vaginal delivery): Status: Acute (2) Anemia during : Status: Acute (3) Rh negative status during : Status: Acute (4) Abnormal multiple marker screen in fetus: Status: Acute Reason for Visit Reason for Visit: CONTRACTIONS Hospital Course Hospital Course Pt doing well s/p , no complaints. Tolerating regular diet, ambulating without assistance. Pt is Breast feeding. Discussed discharge orders and expectations. Pt understands. Baby doing well with feeding, possible features of Downs, they understand, genetic testing to be done. Information Peripartum Data: Delivery Method: Vaginal Physical Exam Back/Pelvis: OTHER: Abd- soft, fundus firm. Lochia light. Extremity: NARRATIVE EXTREMITY EXAM: neg edema neg Homans. Urinary Catheter Management: Levy Latex: Cath Placed During This Visit: yes, but has since been removed by the nurse Reason for Continuing Indwelling Catheter: Required Immobilization for Trauma or Surgery or Anesthesia Urinary Catheter Date of Insertion: 04/07/22 Urinary Catheter Time of Insertion: 19:00 Date Urinary Catheter Removed: 04/07/22 Time Urinary Catheter Discontinued: 23:30 History History History 3 Term 1 0 Miscarriages/Ectopic 1 Living Children 1 Discharge Data Studies Completed and Pending Laboratory Results WBC 20.9 10^3/uL (4.0-10.0) H 04/08/22 12:00 RBC 3.66 10^6/uL (4.1-5.3) L 04/08/22 12:00 Hgb 10.7 g/dL (11.5-15.3) L 04/08/22 12:00 Hct 32.4 % (37.0-47.0) L 04/08/22 12:00 MCV 88.5 fl (81-99) 04/08/22 12:00 MCH 29.2 pg (28.0-34.0) 04/08/22 12:00 MCHC 33.0 g/dL (30.0-36.0) 04/08/22 12:00 RDW 14.3 % (12.1-15.1) 04/08/22 12:00 Plt Count 459 10^3/cmm (130-400) H 04/08/22 12:00 MPV 9.8 fL (7.4-10.4) 04/08/22 12:00 Neut % (Auto) 68.0 % 04/07/22 17:54 Lymph % (Auto) 26.3 % 04/07/22 17:54 [place] % (Auto) 3.9 % 04/07/22 17:54 Eos % (Auto) 0.6 % 04/07/22 17:54 Baso % (Auto) 0.3 % 04/07/22 17:54 Neut # (Auto) 13.30 10^3/uL (1.8-7.7) H 04/07/22 17:54 Lymph # (Auto) 5.1 10^3/uL (0.8-4.8) H 04/07/22 17:54 [place] # (Auto) 0.8 10^3/uL (0.2-0.9) 04/07/22 17:54 Eos # (Auto) 0.1 10^3/uL (0.0-0.8) 04/07/22 17:54 Baso # (Auto) 0.1 10^3/uL (0.0-0.1) 04/07/22 17:54 Nucleated RBC % (auto) 0 % 04/07/22 17:54 Nucleated RBCs # 0.0 /100WBC 04/07/22 17:54 Blood Type A Negative 04/07/22 17:54 Cord Blood Type (Auto) Cancelled 04/07/22 23:48 Rho(D) Type Cancelled 04/07/22 23:48 Antibody Screen Negative 04/07/22 17:54 Mother's Antibody Screen Cancelled 04/07/22 23:48 Direct Antiglob Test Cancelled 04/07/22 23:48 Mother's Blood Type Cancelled 04/07/22 23:48 RhIG Candidate? Cancelled 04/07/22 23:48 Vitals Last Vital Signs Temp 98.1 F 04/09/22 04:25 Pulse 84 04/09/22 04:25 Resp 18 04/09/22 04:25 BP 112/86 04/09/22 04:25 Pulse Ox 98 04/09/22 04:25 O2 Del Method 04/09/22 04:25 Discharge Plan Discharge Patient Disposition: Home Condition: Stable Prescriptions: No Action ferrous sulfate [iron] 325 mg (65 mg iron) tablet 325 mg PO BID Qty: 60 3RF prenat.vits,floresita,[id number]-[id number] Tablet 1 tab PO DAILY docusate sodium [Colace] 100 mg capsule 100 mg PO BID Qty: 60 1RF Discharge Diet: Regular Discharge Activity: Increase activity as tolerated and Return to work/school after cleared by PCP/Specialist Patient Instructions: Opioid Safety Activity Restrictions/Additional Instructions: Pelvic rest x 6 wks Assessment: S/P viable male Anemia- asymptomatic Plan of Treatment: 1. continue vits and iron 2. Ibuprofen for pain with food 3. DC to home today Discharge Attestations SALES OUTFITTER Time Spent in Discharge Care*: less than 30 min Coding Level of Care Code Acute Lining Stitcher for g Fwd Diagnoses (spontaneous vaginal delivery) O80 Anemia during O99.019 Rh negative status during O26.899; Z67.91 Abnormal multiple marker screen in fetus O28.0
--- NOTE | 2022-04-09 09:55 | ANE.PACU2 ---
Inpatient post-anesthesia follow up: Airway intact: Yes Vital signs: Temperature 98.1 F Pulse Rate 84 Respiratory Rate 18 Blood Pressure 112/86 Pulse Oximetry 98 Oxygen Delivery Me thod Room Air Oxygen Flow Rate Fraction of Inspir ed Oxygen Hydration adequate: Yes Nausea and vomiting: No Pain level: 1 Mental status: Baseline
[2022-04-09] MEDS: prenatal vitamin Capsule 1 CAP PO (09:59)
[2022-04-09] MEDS: docusate sodium 100 mg Capsule PO (09:59)
[2022-04-09] MEDS: ibuprofen 800 mg tablet PO ×2 (09:59→16:36)
[2022-04-09 10:04] VITALS: BP 149/83; PULSE 102; RESP 18; TEMP 36.7; O2SAT 98
[2022-04-09 16:39] VITALS: BP 152/89; PULSE 102; RESP 18; O2SAT 98
[2022-04-09] MEDS: mineral oil ENEMA 133 mL PR (18:15)
[2022-04-09 19:30] VITALS: BP 151/89; PULSE 85; RESP 16; TEMP 37; O2SAT 98
== END 2022-04-09 19:30 | disposition home or self-care (01) | DRG 806 ==
LOC: OPOB 04-09 07:39 → OBGYN 04-09 07:39
PROVIDERS: Absent Provider Obstetrics & Gynecology; Admitting Provider Obstetrics & Gynecology; Family Provider Nurse Practitioner Family; PCP Nurse Practitioner Family; Visit Provider Obstetrics & Gynecology
DX: O99.02 Anemia complicating childbirth (principal); O71.4 Obstetric high vaginal laceration alone; Z37.0 Single live birth; D64.9 Anemia, unspecified; O26.893 Other specified pregnancy related conditions, third trimester; Z67.11 Type A blood, Rh negative; O28.5 Abnormal chromosomal and genetic finding on antenatal screening of mother; Z3A.39 39 weeks gestation of pregnancy; Z87.891 Personal history of nicotine dependence
CPT/HCPCS: 12345; 36415; 51702; 59025; 59409; 83986; 85025; 85027; 86850; 86900; 96374; 99211; J0290; J2590; J2795; J3010; J7120; J7121

== ENCOUNTER → 2023-08-26 08:34 | Outpatient (BNVA) | payer OTHER, SELFPAY | PROVIDERS: Family Provider Nurse Practitioner Family; Visit Provider Nurse Practitioner Women's Health | DX: N92.6 Irregular menstruation, unspecified (principal); Z32.01 Encounter for pregnancy test, result positive | CPT/HCPCS: 81025 ==

== ENCOUNTER → 2023-09-11 15:31 | Outpatient (BNVA) | payer OTHER, SELFPAY | PROVIDERS: Family Provider Nurse Practitioner Family; Visit Provider Nurse Practitioner Women's Health | DX: Z36.87 Encounter for antenatal screening for uncertain dates (principal) | CPT/HCPCS: 76801 ==

== ENCOUNTER → 2023-10-03 07:58 | Outpatient (BNVA) | payer OTHER, SELFPAY | PROVIDERS: Family Provider Nurse Practitioner Family; Visit Provider Obstetrics & Gynecology | DX: Z34.80 Encounter for supervision of other normal pregnancy, unspecified trimester (principal) | CPT/HCPCS: 80307; 82950; 84315; 85025; 86592; 86762; 86803; 86850; 86900; 87086; 87340; 87491; 87591; 87624; 87806 ==

== ENCOUNTER → 2023-11-28 14:13 | Outpatient (BNVA) | payer OTHER, SELFPAY | PROVIDERS: Family Provider Nurse Practitioner Family; Visit Provider Obstetrics & Gynecology | DX: Z34.80 Encounter for supervision of other normal pregnancy, unspecified trimester (principal) | CPT/HCPCS: 76805; 84315 ==

== ENCOUNTER → 2023-12-26 03:10 | Outpatient (BNVA) | payer OTHER, SELFPAY | PROVIDERS: Family Provider Nurse Practitioner Family; Visit Provider Obstetrics & Gynecology | DX: Z34.80 Encounter for supervision of other normal pregnancy, unspecified trimester (principal) | CPT/HCPCS: 81000; 82950 ==

== ENCOUNTER 2023-12-30 12:15 | Outpatient (CLI) | payer OTHER, SELFPAY ==
[2023-12-30 12:29] VITALS: BP 160/80; PULSE 108
[2023-12-30 12:44] VITALS: BP 160/80; PULSE 105
[2023-12-30 12:59] VITALS: BP 152/76; PULSE 98
[2023-12-30 13:17] VITALS: BP 147/80; PULSE 103
[2023-12-30 13:22] VITALS: BP 128/60; PULSE 97; BMI 38.0
== END 2023-12-30 13:37 | disposition home or self-care (01) ==
LOC: OPOB 12:18 → OBGYN 12:20
PROVIDERS: Family Provider Nurse Practitioner Family; Visit Provider Obstetrics & Gynecology
DX: O26.899 Other specified pregnancy related conditions, unspecified trimester (principal); Z3A.00 Weeks of gestation of pregnancy not specified
CPT/HCPCS: 99211

== ENCOUNTER → 2024-01-07 07:57 | Outpatient (BNVA) | payer OTHER, SELFPAY | PROVIDERS: Family Provider Nurse Practitioner Family; Visit Provider Obstetrics & Gynecology | DX: Z36.2 Encounter for other antenatal screening follow-up (principal); Z3A.26 26 weeks gestation of pregnancy | CPT/HCPCS: 76816 ==

== ENCOUNTER 2024-01-13 08:06 | Outpatient (CLI) | payer OTHER, SELFPAY ==
[2024-01-13 08:19] VITALS: BMI 38.0
[2024-01-13 08:23] VITALS: BP 142/87; PULSE 102; RESP 18; TEMP 36.3
[2024-01-13 08:38] VITALS: BP 145/84; PULSE 96; RESP 16
[2024-01-13 08:53] VITALS: BP 144/80; PULSE 97; RESP 16
== END 2024-01-13 08:58 | disposition home or self-care (01) ==
LOC: OPOB 08:09 → OBGYN 08:09
PROVIDERS: Family Provider Nurse Practitioner Family; Visit Provider Obstetrics & Gynecology
DX: O36.8190 Decreased fetal movements, unspecified trimester, not applicable or unspecified (principal); Z3A.00 Weeks of gestation of pregnancy not specified
CPT/HCPCS: 99211

== ENCOUNTER → 2024-01-23 07:52 | Outpatient (BNVA) | payer OTHER, SELFPAY | PROVIDERS: Family Provider Nurse Practitioner Family; Visit Provider Obstetrics & Gynecology | DX: Z34.80 Encounter for supervision of other normal pregnancy, unspecified trimester (principal) | CPT/HCPCS: 84315; 85025; 86850 ==

== ENCOUNTER 2024-02-03 09:04 | Outpatient (CLI) | payer OTHER, SELFPAY ==
[2024-02-03 09:16] VITALS: BP 138/76; PULSE 105
[2024-02-03 09:24] VITALS: BMI 38.4
[2024-02-03 09:31] VITALS: BP 150/75; PULSE 95
[2024-02-03 09:46] VITALS: BP 145/66; PULSE 96
[2024-02-03 10:00] VITALS: BP 145/66; PULSE 96
== END 2024-02-03 10:00 | disposition home or self-care (01) ==
LOC: OPOB 09:12 → OBGYN 09:13
PROVIDERS: Family Provider Nurse Practitioner Family; Visit Provider Obstetrics & Gynecology
DX: O26.899 Other specified pregnancy related conditions, unspecified trimester (principal); Z3A.00 Weeks of gestation of pregnancy not specified; R10.9 Unspecified abdominal pain
CPT/HCPCS: 59025; 99211

== ENCOUNTER → 2024-03-19 09:41 | Outpatient (BNVA) | payer OTHER, SELFPAY | PROVIDERS: Family Provider Nurse Practitioner Family; Visit Provider Obstetrics & Gynecology | DX: Z34.80 Encounter for supervision of other normal pregnancy, unspecified trimester (principal); Z36.4 Encounter for antenatal screening for fetal growth retardation; Z3A.36 36 weeks gestation of pregnancy | CPT/HCPCS: 76816; 84315; 87081 ==

== ENCOUNTER 2024-04-10 20:27 | Outpatient (CLI) | payer OTHER, SELFPAY ==
[2024-04-10] VITALS (11 sets, daily range): BP systolic 113–150; BP diastolic 65–86; PULSE 96–112; TEMP 36; BMI 39.1
== END 2024-04-10 23:10 | disposition home or self-care (01) ==
LOC: OPOB 20:27 → OBGYN 20:28
PROVIDERS: Family Provider Nurse Practitioner Family; Visit Provider Obstetrics & Gynecology
DX: O26.899 Other specified pregnancy related conditions, unspecified trimester (principal); Z3A.00 Weeks of gestation of pregnancy not specified; R10.9 Unspecified abdominal pain
CPT/HCPCS: 59025; 99211

== ENCOUNTER 2024-04-14 13:31 | Inpatient (IN) | payer OTHER, SELFPAY ==
[2024-04-14] VITALS (40 sets, daily range): BP systolic 117–149; BP diastolic 64–90; PULSE 92–111; RESP 12–17; TEMP 35.9–36.5; O2SAT 95–99; BMI 38.9
[2024-04-14 13:19] LABS: Basophils # 0.1 10^3/uL (0.0-0.1); Basophils % 0.2 %; Eosinophils # 0.1 10^3/uL (0.0-0.8); Eosinophils % 0.3 %; Hematocrit 33.8 % (36-47); Lymphocytes # 3.5 10^3/uL (0.8-4.8); Lymphocytes % 17.3 %; Mean Corpuscular Hemoglobin 28.3 pg (27-33); Mean Corpuscular Volume 88.7 fl (85-98); Mean Platelet Volume 9.6 fL (7.4-10.4); Monocytes % 4.8 %; Neutrophils # 15.44 10^3/uL (1.8-7.7); Neutrophils % 76.6 %; Nucleated Red Blood Cells % 0 %; Platelet Count 434 10^3/cmm (157-399); Red Blood Count 3.81 10^6/uL (3.85-5.65); White Blood Count 20.17 10^3/uL (3.29-11.43)
[2024-04-14] MEDS: lactated ringers 1,000 ML 999 ML IV (13:40)
--- NOTE | 2024-04-14 13:50 | P.HP_ITS ---
Providers/Chief Complaint 2 Admitting Physician: Francisco Hirsch MD Primary OPERATIONS SUPPORT REPRESENTATIVE: Freddie Tanner MD Primary Care Provider: [employer]OYEE [employer] Chief Complaint: CTx HPI OPERATIONS SUPPORT REPRESENTATIVE History of Present Illness Elsy Deleon is a 28 year old female A1 EDC April 12, 2024 At 40 w 2 d No complications Presented to L&D c/o painful uterine contractions No bleeding, fluid leakage + active movements Present Details : 4 Para: 2 Labs Rubella: Immune RPR: Negative GBS: Negative Medications/Allergies Home Medications Medication Instructions Recorded Confirmed Last Taken Type ferrous sulfate 325 mg (65 mg 325 mg PO DAILY 08/26/23 04/12/24 1 Day Ago History iron) tablet ~04/09/24 docosahexaenoic acid 200 mg mg PO DAILY 02/03/24 04/12/24 1 Day Ago History capsule ( DHA) ~04/09/24 docusate sodium 50 mg capsule 50 mg PO ONCE PRN Constipation 02/20/24 04/12/24 1 Day Ago History ~04/09/24 Allergies Allergy/AdvReac Type Severity Reaction Status Date / Time acetaminophen [From Tylenol] Allergy Mild rash Verified 04/12/24 11:16 PFSH OPERATIONS SUPPORT REPRESENTATIVE 2 PFSH: Medical History Rh negative status during Abnormal multiple marker screen in fetus No pertinent past medical history neghx: htn,dm,thyroid,dvt/pe PCP: Carrie Benitez Atypical squamous cells of undetermined significance (ASC-US) on cervical Pap smear Surgical History No pertinent past surgical history Family History Grandmother Breast cancer maternal--dx age unknown Hypercholesteremia paternal Hypertension Paternal Father Diabetes t2dm Hypercholesteremia Hypertension Mother Hypercholesteremia Grandfather Hypercholesteremia paternal Denies family history of Colon cancer Ovarian cancer Heart disease Uterine cancer Thyroid disease Stroke Social History Smoking and tobacco/nicotine status: former use of tobacco/nicotine Other Female Reproductive History: Hx Age of Menarche: 8 History History History 2 4 Term 2 0 Miscarriages/Ectopic 1 Living Children 2 Care FLAVIO Calculator 2 Estimated Delivery Date Method Current WG Current Estimate 04/12/24 Ultrasound #1 40w 3d Other Estimates 03/31/24 LMP (Certain) 42w 1d Specific Issues/Plans * OBESITY * PREVIOUS CHILD WITH TRISOMY 21 * RH NEGATIVE BLOOD TYPE --01/23/2024 Rhogam given KE Vitals/I&O/Wt Last Vital Signs Temp 98.1 F 04/15/24 03:13 Pulse 87 04/15/24 03:13 Resp 14 04/15/24 03:13 BP 157/94 04/15/24 03:13 Pulse Ox 96 04/15/24 03:13 O2 Del Method Room Air 04/15/24 03:13 04/14/24 04/14/24 04/15/24 14:59 22:59 06:59 Intake Total 937 / 937 1120 / 7 Output Total 700 / 700 400 / 1100 Balance 237 / 237 720 / 957 Weight last 48 hrs Weight 227 lb Physical Exam 2 Narrative: Weight 230 lbs VS normal General awake, alert Lungs: clear Cor: RRR Abd: nontender Cervix: 4 cm / 75 / -2 Ext: no edema External monitor: regular UCs heart tracing good variability, + accelerations Urinary Catheter Management: Levy: Cath Placed During This Visit: yes, but has since been removed by the nurse Reason for Continuing Indwelling Catheter: Decision to DC Catheter Urinary Catheter Date of Insertion: 04/14/24 Urinary Catheter Time of Insertion: 14:56 Date Urinary Catheter Removed: 04/15/24 Time Urinary Catheter Discontinued: 21:11 Data 04/14/24 12:45 04/14/24 13:36 Results Labs OB ([facility]): 2 Obstetrics US 03/19/24 Blood Type A Negative 04/14/24 Antibody Screen Negative 04/14/24 Hct 33.8 % (36-47) L 04/14/24 Hgb 10.80 g/dL (11.27-16.99) L 04/14/24 Rho(D) Type Rh negative 04/14/24 Plt Count 434 10^3/cmm (157-399) H 04/14/24 Hep Bs Antigen Equivocal (Nonreactive) A 10/03/23 Hep Bs Antibody 3.7 (11.5-1000) L 07/17/23 Hepatitis C Antibody Non-reactive (Nonreactive) 10/03/23 Rubella IgG Antibody 52.0 IU/mL (0.0-10.0) H 10/03/23 RPR Nonreactive (Nonreactive) 10/03/23 HIV 1&2 Ab & HIV 1 Ag Non-reactive (Non-Reactiv) 10/03/23 C.trachomatis RNA (TMA) Not detected (NOT DETECTED) N.gonorrhoeae RNA (TMA) Not detected (NOT DETECTED) T. vaginalis Amp RNA Not detected (NOT DETECTED) 10/03/23 Chlamydia/GC Comment See note 10/03/23 Gest Glucose Tolerance 137 mg/dL (70-139) 12/26/23 Uric Acid 3.5 mg/dL (2.4-5.7) 04/14/24 VZV IgG Antibody 2804.00 index 07/17/23 HCG, Qual Positive (Negative) H 08/26/23 Urine Opiates Screen Negative ng/mL (Negative) 10/03/23 Ur Barbiturates Screen Negative ng/mL (Negative) 10/03/23 Ur Phencyclidine Scrn Negative ng/mL (Negative) 10/03/23 Ur Amphetamines Screen Negative ng/mL (Negative) 10/03/23 U Benzodiazepines Scrn Negative ng/mL (Negative) 10/03/23 Urine Cocaine Screen Negative ng/mL (Negative) 10/03/23 U Marijuana (THC) Screen Negative ng/mL (Negative) 10/03/23 Micro Urine Specimen 02/03/24 Pap Smear Interpret See note 10/03/23 A&P Assessment and plan (1) Supervision of other normal : 40 w 2 d Active labor Fetus reassuring Admit to OB Expectant management h/o x two Rh negative GBS negative (2) Rh negative status during : Qualifiers: Trimester: first trimester Qualified Code(s): O26.891 - Other specified related conditions, first trimester; Z67.91 - Unspecified blood type, Rh negative Attestations 2 Medical Necessity Statement*: patient at 40 w 2 d, with active labor Coding Level of Care Code Acute Code for Chg Fwd Diagnoses Supervision of other normal Z34.80 Rh negative status during in first trimester O26.891; Z67.91 Trimester: first trimester Time Spent (min) 60
[2024-04-14] MEDS: fentaNYL 50 mcg/mL INJ 2mL IVP (13:57)
--- NOTE | 2024-04-14 14:01 | P.ANESASSM_ITS ---
Pre-Anesthetic Assessment Height/Weight: Height 1.63 m Weight 102.965 kg Pulse Resp BP Pulse Ox O2 Del Method 94 17 134/77 95 Room Air 04/14/24 13:16 04/14/24 13:57 04/14/24 13:16 04/14/24 12:33 04/14/24 12:53 Preop Diagnosis: labor pain epidural Was Beta Domi taken within 24 hours: N/A Was Clonidine taken within 24 hours: N/A Exam alert, oriented x 3, clear to auscultation bilaterally and regular rate & rhythm Airway Submandibular: within normal limits Cervical ROM: within normal limits Mallampati: Class II Dentition: full Pulmonary None reported CV/HEM Anemia None reported Hepatic None reported GI Gastroesophageal Reflux Disease Metabolic None reported Musc/skel None reported Neuropsych None reported Anesthetic Plan ASA status: 2 Anesthesia: Regional (specify below) Risk of > 500 ml blood loss (7ml/kg in children): No Medications/Allergies Home Medications Medication Instructions Recorded Confirmed Last Taken Type ferrous sulfate 325 mg (65 mg 325 mg PO DAILY 08/26/23 04/12/24 1 Day Ago History iron) tablet ~04/09/24 docosahexaenoic acid 200 mg mg PO DAILY 02/03/24 04/12/24 1 Day Ago History capsule ( DHA) ~04/09/24 docusate sodium 50 mg capsule 50 mg PO ONCE PRN Constipation 02/20/24 04/12/24 1 Day Ago History ~04/09/24 Allergies Allergy/AdvReac Type Severity Reaction Status Date / Time acetaminophen [From Tylenol] Allergy Mild rash Verified 04/12/24 11:16 Current Medications Generic Name Dose Route Start Last Admin Trade Name Freq PRN Reason Stop Dose Admin Fentanyl 25 - 100 mcg 04/14/24 13:36 04/14/24 13:57 Fentanyl 50 Mcg/Ml Inj 2ml IVP 25 mcg Q1H PRN Administration SEVERE PAIN Lactated Ringer's 1,000 mls @ 999 mls/hr 04/14/24 12:56 04/14/24 13:40 Lactated Ringers IV 999 mls/hr .Q1H1M PRN Administration See label comments PFSH Anesthesia Medical History Rh negative status during Abnormal multiple marker screen in fetus No pertinent past medical history neghx: htn,dm,thyroid,dvt/pe PCP: Carrie Benitez Atypical squamous cells of undetermined significance (ASC-US) on cervical Pap smear Surgical History No pertinent past surgical history Family History Grandmother Breast cancer maternal--dx age unknown Hypercholesteremia paternal Hypertension Paternal Father Diabetes t2dm Hypercholesteremia Hypertension Mother Hypercholesteremia Grandfather Hypercholesteremia paternal Denies family history of Colon cancer Ovarian cancer Heart disease Uterine cancer Thyroid disease Stroke Social History Smoking and tobacco/nicotine status: former use of tobacco/nicotine Female Reproductive History : 4 Data Anesthesia 04/14/24 12:45 04/14/24 13:36 Short CBC 04/14/24 Range/Units 12:45 WBC 20.17 H (3.29-11.43) 10^3/uL Hgb 10.80 L (11.27-16.99) g/dL Hct 33.8 L (36-47) % MCV 88.7 (85-98) fl Plt Count 434 H (157-399) 10^3/cmm Neut % (Auto) 76.6 % Neut # (Auto) 15.44 H (1.8-7.7) 10^3/uL BMP 04/14/24 12:45 Sodium Cancelled Potassium Cancelled Chloride Cancelled Carbon Dioxide Cancelled BUN Cancelled Creatinine Cancelled Glucose Cancelled Calcium Cancelled Liver Function 04/14/24 Range/Units 12:45 Total Bilirubin Cancelled AST Cancelled ALT Cancelled Alkaline Phosphatase Cancelled Albumin Cancelled Blood Bank 04/14/24 12:45 Blood Type Cancelled Rho(D) Type Cancelled Antibody Screen Cancelled Cardiac Studies: 2 Echocardiogram 11/19/21
[2024-04-14 14:06] LABS: Alanine Aminotransferase < 5 U/L (0-33); Albumin Level 3.4 g/dL (3.5-5.2); Alkaline Phosphatase 153 U/L (35-105); Anion Gap 18.9 (5-19); Aspartate Amino Transferase 11 U/L (0-32); Blood Urea Nitrogen 7 mg/dL (6-20); Calcium 9.3 mg/dL (8.5-10.5); Carbon Dioxide 18 mmol/L (22-29); Chloride 103 mmol/L (98-107); Globulin 3.3 g/dL (1.3-4.6); Glomerular Filtration Rate 261.2 mL/min (90-130); Glucose 112 mg/dL (65-115); Osmolality Calculated 281 mOsm/kg (285-295); Potassium 3.9 mmol/L (3.5-5.1); Sodium 136 mmol/L (136-145); Total Bilirubin 0.3 mg/dL (0.15-1.2); Total Protein 6.7 g/dL (6.6-8.7)
[2024-04-14] MEDS: ROPivacaine syringe 100 MG/50 ML SYRINGE 13 MG EPIDURAL ×3 (14:18→21:04)
--- NOTE | 2024-04-14 14:26 | P.ANES_ITS ---
Anesthesia Procedures Procedure/Date: 04/14/24 epidural Procedure Narrative: epidural complete, bolus given, epidural pump initiated with SEWER LINE PHOTO INSPECTOR education given, vitals taken during procedure and satisfactory throughout, patient admits to decrease pain, report of procedure to OB RN Epidural: Time Out Performed: Yes Consents Signed: Procedure Consent Consent: requested by attending/covering physician, from patient, risks and benefits reviewed and patient agrees to proceed Lumbar Level: L3-L4 Ep idural position: sitting Epidural procedure: sterile prep of area, 1% lidocaine to numb the area (3 mL), 18 g needle, negative for paresthesia passed, neg for paresthesia, test dose given, 1.5% xylocaine 1:200k epi (5 mL), 0.2% Ropivacaine bolus ml (5 mL), placed PCEA, no systemic response, sterile dressing applied, L.U.D. no apparent complications and 0.2% Ropiavacaine @ mls/hr (13 mL/hr)
[2024-04-14 15:18] LABS: Bilirubin Urine Negative (Negative); Blood Urine Negative (Negative); Glucose Urine UA Negative (Normal); Ketones Urine 2+ (Negative); Leukocyte Esterase Urine Negative (Negative); Nitrate Urine Negative (Negative); Protein Urine Negative (Negative); Specific Gravity, Urine 1.008 (1.005-1.030); Urine Appearance Clear (CLEAR); Urine Color Yellow (Yellow); Urobilinogen Urine 0.2 mg/dL (Negative); pH Urine 7.5 (5-7)
[2024-04-14 15:22] LABS: Uric Acid 3.5 mg/dL (2.4-5.7)
[2024-04-14 15:23] LABS: Add Urine Microscopic? YES; Bacteria Urine None Seen /hpf; Hyaline Casts Urine 0-4 /lpf; RBC Urine 0-2 /hpf (0-2); Squamous Epithelial Cell Urine 0-5 /hpf (0-5); WBC Urine 0-5 /hpf (0-5)
[2024-04-14 15:36] LABS: Urine Creatinine 31 mg/dL (28-217); Urine Protein Random 7 mg/dL
[2024-04-14 15:39] LABS: UPRO/UCREAT Ratio 0.23 mg/mg CR
[2024-04-14] MEDS: dextrose 5%-lactated ringers 1,000 ML 125 ML IV (18:10)
[2024-04-14] MEDS: ondansetron 2 mg/ML SDV 2 mL 4 MG IVP (19:22)
--- NOTE | 2024-04-14 20:45 | P.PN_ITS ---
AIRCRAFT GENERAL REPAIR MECHANIC Subjective 2 Subjective: Interval history: Fetus reassuring Cervix: 9 cm / 100 / -2 / BBOW AROM, clear fluid Labor: Station: +2 Amniotic Membrane Status: Ruptured Monitor Mode: External Contraction Pattern: Regular Vitals/I&O/Wt Last Vital Signs Temp 98.1 F 04/15/24 03:13 Pulse 87 04/15/24 03:13 Resp 14 04/15/24 03:13 BP 157/94 04/15/24 03:13 Pulse Ox 96 04/15/24 03:13 O2 Del Method Room Air 04/15/24 03:13 04/14/24 04/14/24 04/15/24 14:59 22:59 06:59 Intake Total 937 / 937 1120 / 2057 Output Total 700 / 700 400 / 1100 Balance 237 / 237 720 / 957 Weight last 48 hrs Weight 227 lb Physical Exam 2 Urinary Catheter Management: Levy: Cath Placed During This Visit: yes, but has since been removed by the nurse Reason for Continuing Indwelling Catheter: Decision to DC Catheter Urinary Catheter Date of Insertion: 04/14/24 Urinary Catheter Time of Insertion: 14:56 Date Urinary Catheter Removed: 04/15/24 Time Urinary Catheter Discontinued: 21:11 Data 04/14/24 12:45 04/14/24 13:36 A&P Assessment and plan (1) Supervision of other normal : Attestations 2 Medical Necessity Statement*: patient at 40 w 2 d, with active labor Coding Level of Care Code Acute Code for Chg Fwd Diagnoses Supervision of other normal Z34.80 Time Spent (min) 20
[2024-04-14] MEDS: oxytocin 30 UNIT/500 ML BAG 600 UNIT IV (21:27)
--- NOTE | 2024-04-14 21:45 | PM.DELIVERY ---
Delivery Note: Date of delivery: April 14, 2024 Pre-delivery diagnoses: 40 w 2 d active labor Post-delivery diagnoses: 40 w 2 d active labor vaginal delivery no lacerations Procedure: vaginal delivery Op report anesthesia: Epidural Delivering Physician: Francisco Hirsch MD Estimated blood loss (mL): 300 Findings: , vigorous female infant Cord gases and blood obtained Normal placenta and cord No episiotomy / lacerations EBL: 300 cc No complications Pre-Delivery Course: normal labor course Delivery: vaginal Post-Delivery Status: good History History History 4 Term 2 0 Miscarriages/Ectopic 1 Living Children 2 A&P Assessment and plan (1) Vaginal delivery: Coding Level of Care Code Acute Code for Chg Fwd Diagnoses Vaginal delivery O80 Time Spent (min) 60
[2024-04-15] VITALS (7 sets, daily range): BP systolic 121–157; BP diastolic 71–94; PULSE 80–95; RESP 14–18; TEMP 36.4–36.9; O2SAT 95–97
[2024-04-15] MEDS: TRAMadol 50 mg Tablet PO (03:12)
[2024-04-15] MEDS: lanolin oint 7 gm 1 APPLIC TOPICAL (03:13)
[2024-04-15] MEDS: benzocaine-menthol 78 gm Canister 1 SPRAY TOPICAL (03:13)
[2024-04-15] MEDS: ibuprofen 800 mg tablet PO ×2 (09:24→15:15)
[2024-04-15] MEDS: docusate sodium 100 mg Capsule PO (09:24)
[2024-04-15] MEDS: PRENATAL VIT NO.130/IRON/FOLIC 1 EACH TABLET PO (09:24)
[2024-04-15 10:47] LABS: Hematocrit 32.4 % (36-47); Mean Corpuscular HGB Conc 32.1 g/dL (30-55); Mean Corpuscular Hemoglobin 28.3 pg (27-33); Mean Platelet Volume 9.7 fL (7.4-10.4); Platelet Count 387 10^3/cmm (157-399); Red Blood Count 3.68 10^6/uL (3.85-5.65); White Blood Count 21.31 10^3/uL (3.29-11.43)
--- NOTE | 2024-04-15 14:05 | PM.OBGYPN ---
PERSONAL CARE SERVICE PROVIDER Subjective Subjective: Interval history: no c/o no bleeding, pain eating, voiding, ambulating well caring for without any problems Labor: Station: +2 Amniotic Membrane Status: Ruptured Monitor Mode: External Contraction Pattern: Regular Vitals/I&O/Wt Last Vital Signs Temp 98.2 F 04/15/24 16:30 Pulse 80 04/15/24 16:30 Resp 16 04/15/24 16:30 BP 121/83 04/15/24 16:30 Pulse Ox 95 04/15/24 06:00 O2 Del Method Room Air 04/15/24 16:30 04/15/24 04/15/24 04/15/24 06:59 14:59 22:59 Intake Total 1120 / 2057 1999 Output Total 400 / 1100 Balance 720 / 957 1999 Weight last 48 hrs Weight 227 lb Physical Exam Narrative: afebrile, VS normal comfortable, awake, alert Abd: soft, nontender. fundus firm Ext: no edema; nontender Urinary Catheter Management: Levy: Cath Placed During This Visit: yes, but has since been removed by the nurse Reason for Continuing Indwelling Catheter: Decision to DC Catheter Urinary Catheter Date of Insertion: 04/14/24 Urinary Catheter Time of Insertion: 14:56 Date Urinary Catheter Removed: 04/15/24 Time Urinary Catheter Discontinued: 21:11 Data 04/15/24 09:35 04/14/24 13:36 A&P Assessment and plan (1) Vaginal delivery: PPD #1 doing well discharge to home today instructions and precautions given call/return if fever, chills, headache, blurry vision, nausea, vomiting, abdominal pain; vaginal bleeding or discharge; shortness of breath, chest pain, leg pains or swelling; inability to void, perineal pain or swelling; feelings of depression or mood changes; thoughts of suicide or harming others; inability to care for baby. f/u in 6 weeks or PRN Attestations Medical Necessity Statement*: patient s/p vaginal delivery, plan to discharge to home today Coding Level of Care Code Acute Code for Chg Fwd Diagnoses Vaginal delivery O80 Time Spent (min) 20
--- NOTE | 2024-04-15 14:10 | PM.OBGYDC ---
Discharge Providers [employer]CTOR Date of Admission: 04/14/24 13:31 Date of Discharge: 04/15/24 Attending Provider at Admission: Francisco Hirsch MD Attending Provider at Discharge: Francisco Hirsch MD Consults: none Primary H[employer] DANCE INSTRUCTOR: Freddie Tanner MD Primary Care Provider: [employer] Diagnoses at Discharge Discharge Diagnosis (1) Vaginal delivery: Details from hospital stay: 28 y.o. A1 at 40 w 2 d no complications presented with active labor cervix was 4 cm fetus was reassuring throughout patient progressed to vaginal delivery without any complications patient had a benign course and was discharged to home on the first day Status: Acute Reason for Visit Reason for Visit: CTx Brief History: 28 y.o. A1 at 40 w 2 d no complications presented with active labor Hospital Course Hospital Course 28 y.o. A1 at 40 w 2 d no complications presented with active labor cervix was 4 cm fetus was reassuring throughout patient progressed to vaginal delivery without any complications patient had a benign course and was discharged to home on the first day Information Peripartum Data: Infant Delivery Method: Vaginal Laceration description: None Episiotomy description: None complications: none Physical Exam Narrative: afebrile, VS normal comfortable, awake, alert Abd: soft, nontender. fundus firm Ext: no edema; nontender Urinary Catheter Management: Levy: Cath Placed During This Visit: yes, but has since been removed by the nurse Reason for Continuing Indwelling Catheter: Decision to DC Catheter Urinary Catheter Date of Insertion: 04/14/24 Urinary Catheter Time of Insertion: 14:56 Date Urinary Catheter Removed: 04/15/24 Time Urinary Catheter Discontinued: 21:11 History History History 4 Term 2 0 Miscarriages/Ectopic 1 Living Children 2 Discharge Data Studies Completed and Pending Laboratory Results WBC 21.31 10^3/uL (3.29-11.43) H 04/15/24 09:35 RBC 3.68 10^6/uL (3.85-5.65) L 04/15/24 09:35 Hgb 10.40 g/dL (11.27-16.99) L 04/15/24 09:35 Hct 32.4 % (36-47) L 04/15/24 09:35 MCV 88.0 fl (85-98) 04/15/24 09:35 MCH 28.3 pg (27-33) 04/15/24 09:35 MCHC 32.1 g/dL (30-55) 04/15/24 09:35 RDW 14.0 % (12.1-15.1) 04/15/24 09:35 Plt Count 387 10^3/cmm (157-399) 04/15/24 09:35 MPV 9.7 fL (7.4-10.4) 04/15/24 09:35 Neut % (Auto) 76.6 % 04/14/24 12:45 Lymph % (Auto) 17.3 % 04/14/24 12:45 Grand % (Auto) 4.8 % 04/14/24 12:45 Eos % (Auto) 0.3 % 04/14/24 12:45 Baso % (Auto) 0.2 % 04/14/24 12:45 Neut # (Auto) 15.44 10^3/uL (1.8-7.7) H 04/14/24 12:45 Lymph # (Auto) 3.5 10^3/uL (0.8-4.8) 04/14/24 12:45 Grand # (Auto) 1.0 10^3/uL (0.2-0.9) H 04/14/24 12:45 Eos # (Auto) 0.1 10^3/uL (0.0-0.8) 04/14/24 12:45 Baso # (Auto) 0.1 10^3/uL (0.0-0.1) 04/14/24 12:45 Nucleated RBC % (auto) 0 % 04/14/24 12:45 Nucleated RBCs # 0.0 /100WBC 04/14/24 12:45 Sodium 136 mmol/L (136-145) 04/14/24 13:36 Potassium 3.9 mmol/L (3.5-5.1) 04/14/24 13:36 Chloride 103 mmol/L (98-107) 04/14/24 13:36 Carbon Dioxide 18 mmol/L (22-29) L 04/14/24 13:36 Anion Gap 18.9 (5-19) 04/14/24 13:36 BUN 7 mg/dL (6-20) 04/14/24 13:36 Creatinine 0.3 mg/dL (0.5-0.9) L 04/14/24 13:36 GFR Calculation 261.2 mL/min (90-130) H 04/14/24 13:36 Glucose 112 mg/dL (65-115) 04/14/24 13:36 Calculated Osmolality 281 mOsm/kg (285-295) L 04/14/24 13:36 Uric Acid 3.5 mg/dL (2.4-5.7) 04/14/24 13:36 Calcium 9.3 mg/dL (8.5-10.5) 04/14/24 13:36 Total Bilirubin 0.3 mg/dL (0.15-1.2) 04/14/24 13:36 AST 11 U/L (0-32) 04/14/24 13:36 ALT < 5 U/L (0-33) 04/14/24 13:36 Alkaline Phosphatase 153 U/L (35-105) H 04/14/24 13:36 Total Protein 6.7 g/dL (6.6-8.7) 04/14/24 13:36 Albumin 3.4 g/dL (3.5-5.2) L 04/14/24 13:36 Globulin 3.3 g/dL (1.3-4.6) 04/14/24 13:36 Urine Color Yellow (Yellow) 04/14/24 14:56 Urine Appearance Clear (CLEAR) 04/14/24 14:56 Urine pH 7.5 (5-7) 04/14/24 14:56 Ur Specific [place] 1.008 (1.005-1.030) 04/14/24 14:56 Urine Protein Negative (Negative) 04/14/24 14:56 Urine Glucose (UA) Negative (Normal) 04/14/24 14:56 Urine Ketones 2+ (Negative) H 04/14/24 14:56 Urine Blood Negative (Negative) 04/14/24 14:56 Urine Nitrate Negative (Negative) 04/14/24 14:56 Urine Bilirubin Negative (Negative) 04/14/24 14:56 Urine Urobilinogen 0.2 mg/dL (Negative) 04/14/24 14:56 Ur Leukocyte Esterase Negative (Negative) 04/14/24 14:56 Urine RBC 0-2 /hpf (0-2) 04/14/24 14:56 Urine WBC 0-5 /hpf (0-5) 04/14/24 14:56 Ur Squamous Epith Cells 0-5 /hpf (0-5) 04/14/24 14:56 Amorphous Sediment Not Reportable 04/14/24 14:56 Urine Bacteria None seen /hpf (NONE) 04/14/24 14:56 Hyaline Casts 0-4 /lpf H 04/14/24 14:56 U Random Total Protein 7 mg/dL 04/14/24 14:56 Urine Creatinine 31 mg/dL (28-217) 04/14/24 14:56 Protein/Creatinin Ratio 0.23 mg/mg CR 04/14/24 14:56 Blood Type A Negative 04/14/24 13:36 Rho(D) Type Rh negative 04/14/24 13:36 Antibody Screen Negative 04/14/24 13:36 Procedures Performed vaginal delivery Vitals Last Vital Signs Temp 98.2 F 04/15/24 16:30 Pulse 80 04/15/24 16:30 Resp 16 04/15/24 16:30 BP 121/83 04/15/24 16:30 Pulse Ox 95 04/15/24 06:00 O2 Del Method Room Air 04/15/24 16:30 Results Labs OB ([facility]): Obstetrics US 03/19/24 Blood Type A Negative 04/14/24 Antibody Screen Negative 04/14/24 Hct 32.4 % (36-47) L 04/15/24 Hgb 10.40 g/dL (11.27-16.99) L 04/15/24 Rho(D) Type Rh negative 04/14/24 Plt Count 387 10^3/cmm (157-399) 04/15/24 Hep Bs Antigen Equivocal (Nonreactive) A 10/03/23 Hep Bs Antibody 3.7 (11.5-1000) L 07/17/23 Hepatitis C Antibody Non-reactive (Nonreactive) 10/03/23 Rubella IgG Antibody 52.0 IU/mL (0.0-10.0) H 10/03/23 RPR Nonreactive (Nonreactive) 10/03/23 HIV 1&2 Ab & HIV 1 Ag Non-reactive (Non-Reactiv) 10/03/23 C.trachomatis RNA (TMA) Not detected (NOT DETECTED) 10/03/23 N.gonorrhoeae RNA (TMA) Not detected (NOT DETECTED) 10/03/23 T. vaginalis Amp RNA Not detected (NOT DETECTED) 10/03/23 Chlamydia/GC Comment See note 10/03/23 Gest Glucose Tolerance 137 mg/dL (70-139) 12/26/23 Uric Acid 3.5 mg/dL (2.4-5.7) 04/14/24 VZV IgG Antibody 2804.00 index 07/17/23 HCG, Qual Positive (Negative) H 08/26/23 Urine Opiates Screen Negative ng/mL (Negative) 10/03/23 Ur Barbiturates Screen Negative ng/mL (Negative) 10/03/23 Ur Phencyclidine Scrn Negative ng/mL (Negative) 10/03/23 Ur Amphetamines Screen Negative ng/mL (Negative) 10/03/23 U Benzodiazepines Scrn Negative ng/mL (Negative) 10/03/23 Urine Cocaine Screen Negative ng/mL (Negative) 10/03/23 U Marijuana (THC) Screen Negative ng/mL (Negative) 10/03/23 Micro Urine Specimen 02/03/24 Pap Smear Interpret See note 10/03/23 Discharge Plan Discharge Patient Disposition: Home Condition: Stable Prescriptions: Continued ferrous sulfate 325 mg (65 mg iron) tablet 325 mg PO DAILY docusate sodium 50 mg capsule 50 mg PO ONCE PRN (Reason: Constipation) DHA 200 mg capsule PO DAILY Discharge Orders: Discharge Order (Routine); Ordered 04/15/24 Ordered By: Francisco Hirsch Referrals: Francisco Hirsch MD [Physician] - 05/26/24 8:15 am Discharge Diet: Usual diet Discharge Activity: Resume usual activity Patient Instructions: Depression (DC), Opioid Safety (DC), Preeclampsia and Eclampsia After Delivery (GEN), Hemorrhage (DC), OB Discharge Report, OB Food/Drug Interaction Guide, Opioid Safety, OB Home Care, OB Vaginal Deliveries - [facility], Abnormal Bleeding Discharge Attestations [employer] Time Spent in Discharge Care*: less than 30 min Coding Level of Care Code Acute Code for Chg Fwd Diagnoses Vaginal delivery O80 Time Spent (min) 20
[2024-04-15] MEDS: Fleet Enema 133 mL Enema PR (19:33)
== END 2024-04-15 23:15 | disposition home or self-care (01) | DRG 806 ==
LOC: OPOB 13:32 → OBGYN 13:32
PROVIDERS: Admitting Provider Obstetrics & Gynecology; Family Provider Nurse Practitioner Family; Visit Provider Obstetrics & Gynecology
DX: O48.0 Post-term pregnancy (principal); O36.0930 Maternal care for other rhesus isoimmunization, third trimester, not applicable or unspecified; Z37.0 Single live birth; O99.214 Obesity complicating childbirth; O75.89 Other specified complications of labor and delivery; K21.9 Gastro-esophageal reflux disease without esophagitis; Z3A.40 40 weeks gestation of pregnancy; Z87.891 Personal history of nicotine dependence; Z80.3 Family history of malignant neoplasm of breast; Z83.3 Family history of diabetes mellitus; Z82.49 Family history of ischemic heart disease and other diseases of the circulatory system
CPT/HCPCS: 36415; 51702; 59025; 59409; 80053; 81001; 82570; 84156; 84550; 85025; 85027; 86850; 86900; 96374; 98960; 99211; J2405; J2590; J2795; J3010; J7120; J7121